=== PATIENT | female | born 1985 | race Caucasian/White ===

== ENCOUNTER 2022-02-08 04:52 | Emergency (ER) | payer OTHER, SELFPAY ==
--- NOTE | ~2022-02-08 | XR_ITS ---
EXAMINATION: XR CHEST CLINICAL INFORMATION: Cough COMPARISON: None TECHNIQUE: Frontal view of the chest was obtained. FINDINGS: Normal symmetric lung volumes. No parenchymal consolidation. Mild bilateral parahilar bronchial thickening. No pleural effusion. No pneumothorax. Cardiomediastinal silhouette and pulmonary vascularity are within normal limits. No acute osseous abnormalities. XR/XR chest 1V IMPRESSION: Mild bilateral parahilar bronchial thickening as can be seen with bronchitis and/or asthma
[2022-02-08 05:03] VITALS: BP 144/92; PULSE 116; RESP 20; TEMP 36.8; O2SAT 96; BMI 18.8
[2022-02-08 05:39] LABS: COVID-19 Test Negative (Negative); IDNOW Serial# 08D9AD1C; Influenza A Negative (Negative); Influenza B2 Negative (Negative)
[2022-02-08 05:41] VITALS: BP 126/83; PULSE 97; RESP 22; TEMP 36.8; O2SAT 96
[2022-02-08 06:11] VITALS: PULSE 101; RESP 18; O2SAT 92
[2022-02-08] MEDS: Albuterol Sulfate (0.083%) 2.5 MG/3 ML VIAL.NEB 10 MG INHALE (06:15)
--- NOTE | 2022-02-08 07:03 | ED.URI ---
HPI - URI/Sore Throat General Chief Complaint: Upper Respiratory Symptoms Stated Complaint: SoB, Cough Time Seen by Provider: 02/08/22 05:47 Source: patient Mode of arrival: ambulatory History of Present Illness HPI Narrative: 36-year-old female with history of asthma, every day smoker of cigarettes who presents with increasing shortness of breath and difficulty breathing without associated fever, chills, nausea, vomiting, or diarrhea. Patient states she has also had a cough productive of yellow phlegm. Patient is not currently manage her asthma with albuterol. Related Data Previous Rx's Medication Instructions Recorded albuterol sulfate 90 mcg/actuation 2 puff INHALATION Q4-6H PRN #8.5 g 02/08/22 aerosol inhaler (Ventolin HFA) prednisone 50 mg tablet 50 mg PO DAILY 4 Days #4 tab 02/08/22 Allergies Allergy/AdvReac Type Severity Reaction Status Date / Time No Known Allergies Allergy Unverified 07/13/20 18:05 Review of Systems Review of Systems: Pertinent positives and negatives as stated in HPI and 10 point review of systems is otherwise negative. PMFSH Past Medical History Source: nursing notes reviewed Social History Social History Alcohol intake: former Patient Tobacco Use Status: Current everyday Tobacco user Smoked in Last 30 Days: Yes Use of substances other than those prescribed or required for medical reasons: Yes Substance Use Type: Marijuana Substance Use Frequency: Monthly Last Used Substance: Days (ago) Any prior treatment program specific to substance use: No Advance Directives: No Advance Directives Information Provided: Yes Patient : No Physical Exam Vital Signs: Vital Signs: Last Vital Signs Temp 98 F 02/08/22 07:26 Pulse 117 H 02/08/22 07:26 Resp 18 02/08/22 07:26 BP 120/69 02/08/22 07:26 Pulse Ox 94 02/08/22 07:26 BMI result Body Mass Index 18.8 VITAL SIGNS: Reviewed. GENERAL: Well developed, well nourished, in no acute distress. HEAD: Normocephalic/atraumatic EYES: PERRLA, EOMI EARS: Ext canals without abnormality, TMs non-bulging and non-erythematous NOSE: Nares patent bilateral OROPHARYNX: no oral lesions noted, posterior pharynx clear and non-erythematous without noted tonsillar enlargement/erythema/exudates NECK: Supple, no adenopathy LUNGS: Decreased breath sounds, expiratory wheeze noted without rhonchi/rales No adventitious sounds or accessory muscle use. SpO2<96> CARDIOVASCULAR: Regular rate and rhythm without noted murmurs, ABDOMEN: Soft, non-tender, non-distended with bowel sounds. SKIN: Inspection of the skin reveals no rashes NEUROLOGIC: Alert and oriented x 4. Strength and sensation to light touch were grossly intact x 4. Course Course Course Narrative: 36-year-old female with history and clinical presentation consistent with asthma exacerbation on review of all investigations there are no acute findings to suggest pneumonia or influenza/COVID. Patient was given 2 hour long albuterol treatments, was never hypoxic, and received initial dose of prednisone and then discharged home in stable condition. MDM - URI/Sore Throat Lab Data Labs: Lab Results 02/08/22 02/08/22 Range/Units 05:19 05:19 COVID-19 (TAWNY) Negative (Negative) COVID-19 Clin Com See Note Influenza Type A (ISAAC) Negative (Negative) Influenza Type B (ISAAC) Negative (Negative) Influenza A & B Note See Note Discharge Plan Discharge Clinical Impression: Asthma exacerbation, Bronchitis Patient Disposition: Home, Self-Care Instructions: Asthma (ED), Acute Bronchitis (ED) Additional Instructions: 1. Start taking odff-sra-woyigcg Flonase and Claritin to help reduce the FX of seasonal allergies. 2. Complete the course of prednisone as prescribed. 3. You have been provided with a prescription for Ventolin and should use it at 2 puffs every 4-6 hours for shortness of breath. 4. Follow-up with your primary care provider on Friday morning. Return to the ER for worsening symptoms. Prescriptions: New prednisone 50 mg tablet 50 mg PO DAILY 4 Days Qty: 4 0RF albuterol sulfate [Ventolin HFA] 90 mcg/actuation HFA aerosol inhaler 2 puff inhalation Q4-6H PRN (Reason: shortness of breath or wheezing) Qty: 8.5 0RF Referrals: Stephanie Sheikh MD [Primary Care Provider] -
[2022-02-08 07:26] VITALS: BP 120/69; PULSE 117; RESP 18; TEMP 36.6; O2SAT 94
[2022-02-08] MEDS: predniSONE 10 MG TABLET 50 MG PO (07:27)
== END 2022-02-08 08:09 | disposition home or self-care (01) ==
PROVIDERS: Student in an Organized Health Care Education/Training Program; Emergency Provider Emergency Medicine; PCP Internal Medicine
DX: J45.901 Unspecified asthma with (acute) exacerbation (principal); R06.02 Shortness of breath; R05.9 Cough, unspecified; Z20.822 Contact with and (suspected) exposure to COVID-19; F17.210 Nicotine dependence, cigarettes, uncomplicated; Z71.6 Tobacco abuse counseling; Z79.899 Other long term (current) drug therapy
CPT/HCPCS: 71045; 87502; 87635; 94640; 94644; 99284

== ENCOUNTER 2022-11-25 14:53 | Observation (INO) | payer OTHER, SELFPAY ==
--- NOTE | ~2022-11-25 | CT_ITS ---
EXAMINATION: CT ANGIOGRAM OF THE CHEST WITH AND WITHOUT CONTRAST (CT PULMONARY ANGIOGRAM FOR PE) CLINICAL INFORMATION: Reason for Exam hypoxia, tachycardia COMPARISON: Chest radiograph 11/25/2022, CT abdomen pelvis 09/24/2018 TECHNIQUE: Prior to contrast administration, noncontrast localization images were obtained. Subsequently, multidetector volumetric imaging was performed from the thoracic inlet to below the diaphragms following the administration of 100 mL Omnipaque 350 intravenous contrast. No contrast reaction reported Sagittal, coronal, and MIP oblique sagittal reformatted images were obtained on the CT workstation, uploaded to PACS, and reviewed. This CT examination was performed using dose optimization techniques as appropriate, variously including the following: *Automated exposure control *Adjustment of mA and/or kV according to patient size (this includes techniques or standardized protocols for targeted exams where dose is matched to indication/reason for exam; i.e. extremities or head) *Use of iterative reconstruction technique Total exam dose-length product 364 mGy-cm FINDINGS: QUALITY OF STUDY/CONTRAST BOLUS: Suboptimal. PULMONARY ARTERIES: No central or large segmental pulmonary emboli. THORACIC AORTA: No aneurysm or dissection. 4 vessel branching pattern of the arch is seen with a separate origin to the left vertebral artery. LUNG: Peripheral groundglass infiltrates are seen in the right upper lobe, right middle lobe, lingula and right lower lobe. There is a 6 mm right lower lobe subpleural nodule adjacent to the major fissure (9:265). There is a subpleural 3 mm right lower lobe nodule laterally (9:289). There is a 5 mm pleural-based left lower lobe nodule (9:345). PLEURA: No pleural effusion or pneumothorax. MEDIASTINUM: Normal heart size. No pericardial effusion. No hilar or mediastinal lymphadenopathy. No evidence of septal bowing or right heart strain. CORONARY ARTERY CALCIFICATION: None visualized on this study. CHEST WALL/AXILLA: No axillary or internal mammary lymphadenopathy. OSSEOUS STRUCTURES: No acute or suspicious osseous abnormality. UPPER ABDOMEN: Some splenic hypodensities are present. No reflux of contrast into the hepatic veins to suggest elevated right heart pressures. CT/CT angio chest PE protocol IMPRESSION: 1. No evidence of pulmonary emboli. 2. Peripheral groundglass infiltrates suggestive of viral pneumonia. 3. Pulmonary nodules as described above. VTE: negative. 2017 Fleischner Society Recommendations for Lung Nodule(s): Follow-Up based on size (average of long- and short-axis diameters). Use most suspicious nodule for followup. Single Solid lung nodule 6-8 mm: In a low-risk patient, recommend a non-contrast Chest CT at 6-12 months, then consider an additional non-contrast Chest CT at 18-24 months. In a high-risk patient, recommend a non-contrast Chest CT at 6-12 months, then another non-contrast Chest CT at 18-24 months. These guidelines do not apply to patients younger than 35 years, immunocompromised patients, and patients with cancer. F/u in patients with significant comorbidities as clinically warranted. For lung cancer screening, adhere to Lung-RADS guidelines. Reference: Radiology. 2017 Josias; 284(1):228-243
--- NOTE | ~2022-11-25 | XR_ITS ---
EXAMINATION: XR CHEST CLINICAL INFORMATION: Cough and fever. COMPARISON: 02/08/2022 chest radiograph. TECHNIQUE: 2 views of the chest were obtained. FINDINGS: No significant abnormality is noted involving the heart, lungs, mediastinum, bony thorax or soft tissues. XR/XR chest 2V IMPRESSION: No acute cardiopulmonary process.
[2022-11-25 15:25] VITALS: BP 135/94; PULSE 100; RESP 18; TEMP 36.8; O2SAT 98; BMI 18.8
--- NOTE | 2022-11-25 15:25 | ED_ITS ---
HPI - URI/Sore Throat General Chief Complaint: Upper Respiratory Symptoms <Mery Limon NP - Last Filed: 11/25/22 15:27> Stated Complaint: diff breathing <Mery Limon NP - Last Filed: 11/25/22 15:27> Time Seen by Provider: 11/25/22 18:23 <Mery Limon NP - Last Filed: 11/25/22 15:27> Source: patient <JOSH Malone Last Filed: 11/26/22 00:25> Mode of arrival: ambulatory <JOSH Malone Last Filed: 11/26/22 00:25> Limitations: no limitations <JOSH Malone Last Filed: 11/26/22 00:25> History of Present Illness HPI Narrative: 37-year-old female presents with cough, congestion, wheezing and shortness of breath. Upon arrival, patient's O2 sat was 88% on room air. Patient does have a history of asthma, is on methadone. She states that she has had these symptoms for over a week. She has had intermittent subjective fevers, chills, and fatigue. <JOSH Malone Last Filed: 11/26/22 00:25> MD elicited complaint: fever, cough, rhinorrhea and nasal congestion <JOSH Malone Last Filed: 11/26/22 00:25> Onset (ago): week(s) <JOSH Malone Last Filed: 11/26/22 00:25> Consistency: constant and progressively worsening <JOSH Malone Last Filed: 11/26/22 00:25> Severity: moderate <JOSH Malone Last Filed: 11/26/22 00:25> Description of mucous: clear <JOSH Malone Last Filed: 11/26/22 00:25> Able to tolerate fluids by mouth: Yes <JOSH Malone Last Filed: 11/26/22 00:25> Exacerbating factors: exertion, speaking and deep breaths <JOSH Malone Last Filed: 11/26/22 00:25> Relieving factors: nothing <JOSH Malone Last Filed: 11/26/22 00:25> Associated symptoms: fever, chills, myalgias, rhinorrhea, nasal congestion, cough and shortness of breath <Hilda Youngblood NP - Last Filed: 11/26/22 00:25> Treatments prior to arrival: none <Hilda Youngblood NP - Last Filed: 11/26/22 00:25> Related Data Home Medications: Home Medications Medication Instructions Recorded Confirmed epinephrine 0.125 mg/actuation 1 puff inhalation Q4H PRN 11/25/22 11/25/22 aerosol inhaler (Primatene Mist) Shortness Of Breath Or Wheezing <Mery Limon NP - Last Filed: 11/25/22 15:27> Allergies/Adverse Reactions: Allergies Allergy/AdvReac Type Severity Reaction Status Date / Time No Known Allergies Allergy Unverified 07/13/20 18:05 <Mery Limon NP - Last Filed: 11/25/22 15:27> Review of Systems Review of Systems: Constitutional: positive Fever, positive Chills, positive fatigue, positive Malaise ENT/Mouth: positive sore throat, positive runny nose Eyes: No Discharge Cardiovascular: No Chest Pain, No SOB Respiratory: Positive Cough, No Sputum, positive Wheezing, No Dyspnea Gastrointestinal: No Nausea, No Vomiting, No Diarrhea Musculoskeletal: positive Myalgia Skin: No rash Neuro: No Headache <JOSH Malone Last Filed: 11/26/22 00:25> Yes all other systems are reviewed and are negative <Hilda Youngblood NP - Last Filed: 11/26/22 00:25> [facility] Past Medical History Attestation statement: The following information was validated with the patient. <Hilda Youngblood NP - Last Filed: 11/26/22 00:25> Source: old records reviewed <JOSH Malone Last Filed: 11/26/22 00:25> Medical History: Medical History (Updated 11/26/22 @ 00:25 by Hilda Youngblood NP) Hepatitis C Mild intermittent asthma Opioid dependence Polysubstance abuse <JOSH Flowers Last Filed: 11/25/22 15:27> Social History Social History: Social History Alcohol intake: former Patient Tobacco Use Status: Current everyday Tobacco user Substance Use Type: Marijuana Advance Directives: No Advance Directives Information Provided: Yes <Mery Liomn NP - Last Filed: 11/25/22 15:27> Physical Exam Vital Signs: Vital Signs: Last Vital Signs Temp 98.2 F 11/25/22 18:26 Pulse 105 H 11/25/22 20:57 Resp 18 11/25/22 20:57 BP 115/73 11/25/22 18:26 Pulse Ox 96 11/25/22 20:29 O2 Del Method 11/25/22 20:29 BMI result Body Mass Index 18.8 <Mery Limon NP - Last Filed: 11/25/22 15:27> Vital Signs: Last Vital Signs Temp 98.2 F 11/25/22 18:26 Pulse 105 H 11/25/22 20:57 Resp 18 11/25/22 20:57 BP 115/73 11/25/22 18:26 Pulse Ox 96 11/25/22 20:29 O2 Del Method 11/25/22 20:29 BMI result Body Mass Index 18.8 <Hilda Youngblood NP - Last Filed: 11/26/22 00:25> Appearance: Alert. Oriented X3. Moderate distress. Eyes: Pupils equal, round and reactive to light. ENT: Pharynx normal. Neck: Normal inspection. Neck supple. CVS: Tachycardic heart rate and rhythm. Pulses normal. Respiratory: Tachypneic. Diminished bases coarse lung sounds throughout. Hypoxic. Abdomen: Soft and nontender. Skin: Skin warm and dry. Normal skin color. Normal skin turgor. Extremities: No lower extremity edema. Neuro: No motor deficit. No sensory deficit. Cranial nerves 2-12 intact. <Hilda Youngblood NP - Last Filed: 11/26/22 00:25> Course Course Course Narrative: This is rapid medical exam. Deferred additional HPI, ROS, PE to primary provider. 37 yo female currently on methadone, hep c here with cough, congestion, chest discomfort with coughing. Will need CXR, covid/flu/rsv testing . VSS <Mery Limon NP - Last Filed: 11/25/22 15:27> This is rapid medical exam. Deferred additional HPI, ROS, PE to primary provider. 37 yo female currently on methadone, hep c here with cough, congestion, chest discomfort with coughing. Will need CXR, covid/flu/rsv testing. VSS 37-year-old female presents with upper respiratory symptoms, is hypoxic on room air at 88%. A chest x-ray completed while she was in the emergency department waiting room, which is negative for acute findings. Labs unremarkable, WBC is 10.0, H&H is 12.7/37.7. Will give albuterol, Solu-Medrol and magnesium. Lung are coarse diminished at bases. Patient continues to be hypoxic on ambulation after albuterol nebulizers. Patient does not have an elevated white count, will order ceftriaxone, azithromycin for suspected pneumonia, and lactic with cultures. I do not believe that this patient is septic at this time. Lactic acid is 5.2, I feel this is respiratory acidosis, this patient is not septic. Patient is admitted for hypoxia and pneumonia. <Hilda Youngblood NP - Last Filed: 11/26/22 00:25> Consultations Consultation #1: Oleg <Hilda Youngblood NP - Last Filed: 11/26/22 00:25> Medications Administered Generic Name Dose Route Start Last Admin Trade Name Freq PRN Reason Stop Dose Admin Enoxaparin Sodium 40 mg 11/25/22 22:00 11/25/22 21:58 Enoxaparin Sodium 40 Mg/0.4 Ml Syringe SUBCUT 40 mg Q24H JACOB Administration Sodium Chloride 3 ml 11/26/22 00:00 11/25/22 23:49 0.9 % Sodium Chloride Flush 3 Ml Syringe IVFLUSH 3 ml QSHIFT JACOB Administration Discontinued Medications Generic Name Dose Route Start Last Admin Trade Name Freq PRN Reason Stop Dose Admin Albuterol Sulfate 10 mg 11/25/22 18:28 11/25/22 18:54 Albuterol Sulfate (0.083%) 2.5 Mg/3 Ml Vial.Neb INHALE 11/25/22 18:29 10 mg ONCE ONE Administration Albuterol Sulfate 10 mg 11/25/22 20:46 11/25/22 20:57 Albuterol Sulfate (0.083%) 2.5 Mg/3 Ml Vial.Neb INHALE 11/25/22 20:47 10 mg ONCE ONE Administration Magnesium Sulfate 2 gm in 50 mls @ 25 mls/hr 11/25/22 18:28 11/25/22 19:07 Magnesium Sulfate/H2o IV 11/25/22 20:27 25 mls/hr ONCE ONE Administration Sodium Chloride 1,000 mls @ 999 mls/hr 11/25/22 21:00 11/25/22 22:00 Ns IVCONT 11/25/22 22:00 999 mls/hr .Q1H1M JACOB Administration Ceftriaxone Sodium 1 gm/ 50 mls @ 100 mls/hr 11/25/22 20:47 11/25/22 21:58 Sodium Chloride IV 11/25/22 21:16 100 mls/hr ONCE ONE Administration Azithromycin 500 mg/ Sodium 250 mls @ 125 mls/hr 11/25/22 20:47 11/25/22 23:49 Chloride IV 11/25/22 22:46 125 mls/hr ONCE ONE Administration Iohexol 100 ml 11/25/22 23:06 11/25/22 23:07 Iohexol 350 Mg/Ml 100 Ml Infus..Btl IV 11/25/22 23:07 100 ml ONCE ONE Administration Methylprednisolone Sodium Succinate 125 mg 11/25/22 18:28 11/25/22 19:07 Methylprednisolone Sod Succ 125 Mg/2 Ml Vial IVPUSH 11/25/22 18:29 125 mg ONCE ONE Administration <Mery Limon SURFACE PLATE INSPECTOR - Last Filed: 11/25/22 15:27> Medications Administered Generic Name Dose Route Start Last Admin Trade Name Freq PRN Reason Stop Dose Admin Enoxaparin Sodium 40 mg 11/25/22 22:00 11/25/22 21:58 Enoxaparin Sodium 40 Mg/0.4 Ml Syringe SUBCUT 40 mg Q24H JACOB Administration Sodium Chloride 3 ml 11/26/22 00:00 11/25/22 23:49 0.9 % Sodium Chloride Flush 3 Ml Syringe IVFLUSH 3 ml QSHIFT JACOB Administration Discontinued Medications Generic Name Dose Route Start Last Admin Trade Name Freq PRN Reason Stop Dose Admin Albuterol Sulfate 10 mg 11/25/22 18:28 11/25/22 18:54 Albuterol Sulfate (0.083%) 2.5 Mg/3 Ml Vial.Neb INHALE 11/25/22 18:29 10 mg ONCE ONE Administration Albuterol Sulfate 10 mg 11/25/22 20:46 11/25/22 20:57 Albuterol Sulfate (0.083%) 2.5 Mg/3 Ml Vial.Neb INHALE 11/25/22 20:47 10 mg ONCE ONE Administration Magnesium Sulfate 2 gm in 50 mls @ 25 mls/hr 11/25/22 18:28 11/25/22 19:07 Magnesium Sulfate/H2o IV 11/25/22 20:27 25 mls/hr ONCE ONE Administration Sodium Chloride 1,000 mls @ 999 mls/hr 11/25/22 21:00 11/25/22 22:00 Ns IVCONT 11/25/22 22:00 999 mls/hr .Q1H1M JACOB Administration Ceftriaxone Sodium 1 gm/ 50 mls @ 100 mls/hr 11/25/22 20:47 11/25/22 21:58 Sodium Chloride IV 11/25/22 21:16 100 mls/hr ONCE ONE Administration Azithromycin 500 mg/ Sodium 250 mls @ 125 mls/hr 11/25/22 20:47 11/25/22 23:49 Chloride IV 11/25/22 22:46 125 mls/hr ONCE ONE Administration Iohexol 100 ml 11/25/22 23:06 11/25/22 23:07 Iohexol 350 Mg/Ml 100 Ml Infus..Btl IV 11/25/22 23:07 100 ml ONCE ONE Administration Methylprednisolone Sodium Succinate 125 mg 11/25/22 18:28 11/25/22 19:07 Methylprednisolone Sod Succ 125 Mg/2 Ml Vial IVPUSH 11/25/22 18:29 125 mg ONCE ONE Administration <Hilda Youngblood NP - Last Filed: 11/26/22 00:25> Medical Decision Making Differential Diagnosis Differential Diagnoses: The differential diagnosis associated with the presentation includes <Hilda Youngblood NP - Last Filed: 11/26/22 00:25> COVID, influenza, RSV, pneumonia <Hilda Youngblood NP - Last Filed: 11/26/22 00:25> Admission/Observation Consideration of admission/observation: Escalation of care including admission/observation considered <Hilda Youngblood NP - Last Filed: 11/26/22 00:25> Patient requires admission for hypoxia, suspicion of pneumonia <Hilda Youngblood NP - Last Filed: 11/26/22 00:25> Consult Healthcare Provider Management of the patient was discussed with: Hospitalist <Hilda Youngblood NP - Last Filed: 11/26/22 00:25> Lab Data MDM Lab Attestation statement: I reviewed the patient's lab results. <Hilda Youngblood NP - Last Filed: 11/26/22 00:25> Result Diagrams: 11/25/22 18:59 11/25/22 18:59 <Mery Limon, SURFACE PLATE INSPECTOR - Last Filed: 11/25/22 15:27> Labs: Lab Results 11/25/22 11/25/22 11/25/22 Range/Units 18:25 18:59 18:59 WBC 10.0 (4.8-10.8) X10*3/uL RBC 4.02 L (4.20-5.50) X10*6/uL Hgb 12.7 (12.0-16.0) g/dl Hct 37.7 (37.0-47.0) % MCV 93.8 (80.0-98.0) fL MCH 31.6 (27.0-33.0) pg MCHC 33.7 (31.0-35.0) g/dl RDW 11.9 (11.0-16.0) % Plt Count 265 (160-400) X10*3/uL MPV 9.0 L (9.4-12.3) fL Immature Gran % (Auto) 0.2 (0.0-0.4) % Neut % (Auto) 55.9 (45-73) % Lymph % (Auto) 26.5 (20-40) % [place] % (Auto) 11.0 (2-11) % Eos % (Auto) 5.7 H (0-4) % Baso % (Auto) 0.7 (0-2) % Lymph # (Auto) 2.7 (1.2-4.9) X10*3/uL [place] # (Auto) 1.1 (0.1-1.2) X10*3/uL Eos # (Auto) 0.6 H (0.0-0.4) X10*3/uL Baso # (Auto) 0.1 (0.0-0.2) X10*3/uL Abs Immat Gran (auto) 0.02 (0.00-0.03) X10*3/uL Absolute Neuts (auto) 5.6 (2.0-8.3) x10*3/uL Absolute Nucleated RBC 0.000 (0.0-0.012) X10*3/uL Nucleated RBC % (auto) 0.0 (0.0-0.2) /100WBC Sodium 138 (135-145) mmol/L Potassium 4.7 (3.3-5.1) mmol/L Chloride 100 (96-108) mmol/L Carbon Dioxide 32 H (22-29) mmol/L Anion Gap 11 L (12-20) BUN 13 (9-16) mg/dL Creatinine 0.70 (0.5-1.4) mg/dL Estim Creat Clear Calc 85.8 Estimated GFR > 60 Random Glucose 77 (60-115) mg/dL Calcium 9.2 (8.4-10.2) mg/dL Magnesium 2.0 (1.6-2.6) mg/dL Influenza Type A (PCR) NEGATIVE (Negative) Influenza Type B (PCR) NEGATIVE (Negative) RSV RNA Qual (PCR) NEGATIVE (Negative) SARS-CoV-2 RNA (RT-PCR) NEGATIVE (Negative) <Mery Limon, SURFACE PLATE INSPECTOR - Last Filed: 11/25/22 15:27> Lab Results 11/25/22 11/25/22 11/25/22 Range/Units 18:25 18:59 18:59 WBC 10.0 (4.8-10.8) X10*3/uL RBC 4.02 L (4.20-5.50) X10*6/uL Hgb 12.7 (12.0-16.0) g/dl Hct 37.7 (37.0-47.0) % MCV 93.8 (80.0-98.0) fL MCH 31.6 (27.0-33.0) pg MCHC 33.7 (31.0-35.0) g/dl RDW 11.9 (11.0-16.0) % Plt Count 265 (160-400) X10*3/uL MPV 9.0 L (9.4-12.3) fL Immature Gran % (Auto) 0.2 (0.0-0.4) % Neut % (Auto) 55.9 (45-73) % Lymph % (Auto) 26.5 (20-40) % [place] % (Auto) 11.0 (2-11) % Eos % (Auto) 5.7 H (0-4) % Baso % (Auto) 0.7 (0-2) % Lymph # (Auto) 2.7 (1.2-4.9) X10*3/uL [place] # (Auto) 1.1 (0.1-1.2) X10*3/uL Eos # (Auto) 0.6 H (0.0-0.4) X10*3/uL Baso # (Auto) 0.1 (0.0-0.2) X10*3/uL Abs Immat Gran (auto) 0.02 (0.00-0.03) X10*3/uL Absolute Neuts (auto) 5.6 (2.0-8.3) x10*3/uL Absolute Nucleated RBC 0.000 (0.0-0.012) X10*3/uL Nucleated RBC % (auto) 0.0 (0.0-0.2) /100WBC Sodium 138 (135-145) mmol/L Potassium 4.7 (3.3-5.1) mmol/L Chloride 100 (96-108) mmol/L Carbon Dioxide 32 H (22-29) mmol/L Anion Gap 11 L (12-20) BUN 13 (9-16) mg/dL Creatinine 0.70 (0.5-1.4) mg/dL Estim Creat Clear Calc 85.8 Estimated GFR > 60 Random Glucose 77 (60-115) mg/dL Calcium 9.2 (8.4-10.2) mg/dL Magnesium 2.0 (1.6-2.6) mg/dL Influenza Type A (PCR) NEGATIVE (Negative) Influenza Type B (PCR) NEGATIVE (Negative) RSV RNA Qual (PCR) NEGATIVE (Negative) SARS-CoV-2 RNA (RT-PCR) NEGATIVE (Negative) <Hilda Youngblood NP - Last Filed: 11/26/22 00:25> Independent Interpretation I performed an independent interpretation of an: Plain X-Ray and CT Scan <Hilda Youngblood NP - Last Filed: 11/26/22 00:25> Radiology Impression Discussion of test interpretation with radiology: I have reviewed the radiologist's reading. <Hilda Youngblood NP - Last Filed: 11/26/22 00:25> Radiologist Impression: FINDINGS: QUALITY OF STUDY/CONTRAST BOLUS: Suboptimal. PULMONARY ARTERIES: No central or large segmental pulmonary emboli.? THORACIC AORTA: No aneurysm or dissection. 4 vessel branching pattern of the arch is seen with a separate origin to the left vertebral artery. LUNG: Peripheral groundglass infiltrates are seen in the right upper lobe, right middle lobe, lingula and right lower lobe. There is a 6 mm right lower lobe subpleural nodule adjacent to the major fissure (9:265). There is a subpleural 3 mm right lower lobe nodule laterally (9:289). There is a 5 mm pleural-based left lower lobe nodule (9:345). PLEURA: No pleural effusion or pneumothorax. MEDIASTINUM: Normal heart size.? No pericardial effusion.? No hilar or mediastinal lymphadenopathy.? No evidence of septal bowing or right heart strain. CORONARY ARTERY CALCIFICATION: None visualized on this study. CHEST WALL/AXILLA: No axillary or internal mammary lymphadenopathy. OSSEOUS STRUCTURES: No acute or suspicious osseous abnormality.? UPPER ABDOMEN: Some splenic hypodensities are present.? No reflux of contrast into the hepatic veins to suggest elevated right heart pressures. CT/CT angio chest PE protocol IMPRESSION: 1.? No evidence of pulmonary emboli. 2.? Peripheral groundglass infiltrates suggestive of viral pneumonia. 3.? Pulmonary nodules as described above. VTE: negative. ? 2017 Fleischner Society Recommendations for Lung Nodule(s): Follow-Up based on size (average of long- and short-axis diameters). Use most suspicious nodule for followup. ? Single Solid lung nodule 6-8 mm:? In a low-risk patient, recommend a non-contrast Chest CT at 6-12 months, then consider an additional non-contrast Chest CT at 18-24 months.? In a high-risk patient, recommend a non-contrast Chest CT at 6-12 months, then another non-contrast Chest CT at 18-24 months.? ? These guidelines do not apply to patients younger than 35 years, immunocompromised patients, and patients with cancer. F/u in patients with significant comorbidities as clinically warranted. For lung cancer screening, adhere to Lung-RADS guidelines.? Reference:? Radiology. 2017 Apr; 284(1):228-243 EXAMINATION: XR CHEST CLINICAL INFORMATION: Cough and fever. COMPARISON: 02/08/2022 chest radiograph. TECHNIQUE: 2 views of the chest were obtained. FINDINGS: No significant abnormality is noted involving the heart, lungs, mediastinum, bony thorax or soft tissues. XR/XR chest 2V IMPRESSION: No acute cardiopulmonary process. <Hilda Youngblood NP - Last Filed: 11/26/22 00:25> External Record Review External record reviewed: Outpatient record and Prior outpatient labs <Hilda Youngblood NP - Last Filed: 11/26/22 00:25> Prescription Management I considered prescription management with: Antibiotic <Hilda Youngblood NP - Last Filed: 11/26/22 00:25> Social Determinants Patient?s care significantly limited by Social Determinants of Health including: Other Social Determinant of Health <Hilda Youngblood NP - Last Filed: 11/26/22 00:25> Discharge Plan Discharge Clinical Impression: Asthma exacerbation, Acute hypoxemic respiratory failure, Pneumonia <Mery Limon NP - Last Filed: 11/25/22 15:27> Patient Disposition: Admitted As Inpatient <Mery Limon NP - Last Filed: 11/25/22 15:27>
[2022-11-25 18:26] VITALS: BP 115/73; PULSE 95; RESP 20; TEMP 36.8; O2SAT 89
[2022-11-25] MEDS: Albuterol Sulfate (0.083%) 2.5 MG/3 ML VIAL.NEB 10 MG INHALE ×2 (18:54→20:57)
[2022-11-25 18:58] VITALS: PULSE 88; RESP 18; O2SAT 91
[2022-11-25 19:04] LABS: MANUAL DIFF FLAG NO
[2022-11-25 19:05] LABS: Basophils Absolute Auto 0.1 X10*3/uL (0.0-0.2); Basophils Percent Auto 0.7 % (0-2); Eosinophils Absolute Auto 0.6 X10*3/uL (0.0-0.4); Eosinophils Percent Auto 5.7 % (0-4); Hematocrit 37.7 % (37.0-47.0); Hemoglobin 12.7 g/dl (12.0-16.0); Imm Gran Abs Auto 0.02 X10*3/uL (0.00-0.03); Imm Gran Pct Auto 0.2 % (0.0-0.4); Lymphocytes Absolute Auto 2.7 X10*3/uL (1.2-4.9); Lymphocytes Percent Auto 26.5 % (20-40); Mean Corpuscular HGB Conc 33.7 g/dl (31.0-35.0); Mean Corpuscular Hemoglobin 31.6 pg (27.0-33.0); Mean Corpuscular Volume 93.8 fL (80.0-98.0); Monocytes Absolute Auto 1.1 X10*3/uL (0.1-1.2); Neutrophils Absolute Auto 5.6 x10*3/uL (2.0-8.3); Neutrophils Percent Auto 55.9 % (45-73); Platelet Count 265 X10*3/uL (160-400); Red Blood Count 4.02 X10*6/uL (4.20-5.50); Red Cell Distribution Width 11.9 % (11.0-16.0)
[2022-11-25] MEDS: methylPREDNISolone Sod Succ 125 MG/2 ML VIAL IVPUSH (19:07)
[2022-11-25] MEDS: Magnesium Sulfate/H2O 2 GM/50 ML PIGGYBACK IV (19:07)
[2022-11-25 19:12] LABS: Influenza A PCR NEGATIVE (Negative); Influenza B PCR NEGATIVE (Negative); Resp Syncy Virus RNA Qual PCR NEGATIVE (Negative); SARS COV2 PCR INHOUSE NEGATIVE (Negative)
[2022-11-25 19:26] LABS: Anion Gap 11 (12-20); Blood Urea Nitrogen 13 mg/dL (9-16); Calcium 9.2 mg/dL (8.4-10.2); Carbon Dioxide 32 mmol/L (22-29); Chloride 100 mmol/L (96-108); Creatinine Clr Calc Pharmacy 85.8; Estimated Glomerular Filt Rate > 60; Glucose Random 77 mg/dL (60-115); Potassium 4.7 mmol/L (3.3-5.1); Sodium 138 mmol/L (135-145)
[2022-11-25 20:28] VITALS: O2SAT 88
[2022-11-25 20:29] VITALS: O2SAT 96
[2022-11-25 20:57] VITALS: PULSE 105; RESP 18; O2SAT 95
--- NOTE | 2022-11-25 21:40 | PM.IMHP ---
History of Present Illness Date of Service: 11/25/22 Attending physician on admission: Cornelius Beltre Chief Complaint: sob, cough 37-year-old female with history of mild intermittent asthma, recently diagnosed hepatitis-C, history of polysubstance abuse, current every day smoker (though only smoking 1 cigarette daily due to illness), and opioid dependence on methadone presented to the ED earlier today for evaluation of shortness of breath, productive cough with yellow sputum production, nasal congestion ongoing for 1.5 weeks. She is also reporting dark urine and urinary urgency. She denies any sick contacts and states she did take a COVID-19 test at home which was negative at the beginning of her symptoms. She has been using her albuterol inhaler with limited improvement of symptoms. On arrival, patient was hypoxic to 89% on room air placed on 2 L supplemental O2. Vital signs otherwise stable. Chest x-ray negative for any acute cardiopulmonary abnormality. No leukocytosis. Renal function normal. Electrolytes normal except for mild hypercapnia of 32. VBG pending. Treated with 2 rounds of 10 mg albuterol nebulizer, IV magnesium, and 125 mg methylprednisolone with limited improvement in symptoms. Chest CTA pending. Negative for COVID-19, influenza, RSV. Patient to be observed for acute asthma exacerbation with acute hypoxemic respiratory failure. Review of Systems Review of Systems: General: No fevers, malaise, unintentional weight loss HEENT: No blurred vision, diplopia. No sore throat, nasal congestion, rhinorrhea, sinus pain, ear pain Cardiovascular: +pleuritic chest pain. No chest pressure, palpitations, or leg edema Respiratory: +shortness of breath, wheezing, cough GI: No abdominal pain, nausea, vomiting, diarrhea, constipation, melena, hematochezia : No dysuria, hematuria, increased urinary frequency, decreased urinary output MSK: No myalgia, back pain Neuro: No headaches, weakness, paresthesias Skin: No rashes or lesions PMFSH Medical History (Updated 11/25/22 @ 21:46 by NILE Carranza) Hepatitis C Mild intermittent asthma Opioid dependence Polysubstance abuse Social History Alcohol intake: former Patient Tobacco Use Status: Current everyday Tobacco user Substance Use Type: Marijuana Advance Directives: No Advance Directives Information Provided: Yes Meds Allergies Allergy/AdvReac Type Severity Reaction Status Date / Time No Known Allergies Allergy Unverified 07/13/20 18:05 Active Medications: Current Medications Sodium Chloride (Ns) 1,000 mls @ 999 mls/hr IVCONT .Q1H1M JACOB Stop: 11/25/22 22:00 Azithromycin 500 mg/ Sodium (Chloride) 250 mls @ 125 mls/hr IV ONCE ONE Stop: 11/25/22 22:46 Physical Exam Vital Signs and Narrative: Vital Signs: Last Vital Signs Temp 98.2 F 11/25/22 18:26 Pulse 105 H 11/25/22 20:57 Resp 18 11/25/22 20:57 BP 115/73 11/25/22 18:26 Pulse Ox 96 11/25/22 20:29 O2 Del Method 11/25/22 20:29 BMI result Body Mass Index 18.8 Constitutional - Awake and Alert, No apparent distress Eyes - PERRLA, EOMI Cardiovascular - S1S2, RRR, No edema Respiratory - Normal lung expansion, Normal respiratory effort, No respiratory distress on 2 L supplemental O2, coarse breath sounds bilaterally with expiratory wheezing Gastrointestinal - NT / ND; +BS; No rebound or guarding Extremities - no calf tenderness bilaterally, no swelling Skin - Warm/Dry Neurological - Alert & oriented x3 Psychological - Appropriate affect Results Labs 11/25/22 18:59 11/25/22 18:59 Labs: Laboratory Results - last 24 hr 11/25/22 11/25/22 11/25/22 18:25 18:59 18:59 MCV 93.8 MCH 31.6 MCHC 33.7 RDW 11.9 Plt Count 265 MPV 9.0 L Immature Gran % (Auto) 0.2 Neut % (Auto) 55.9 Lymph % (Auto) 26.5 [place] % (Auto) 11.0 Eos % (Auto) 5.7 H Baso % (Auto) 0.7 Lymph # (Auto) 2.7 [place] # (Auto) 1.1 Eos # (Auto) 0.6 H Baso # (Auto) 0.1 Abs Immat Gran (auto) 0.02 Absolute Neuts (auto) 5.6 Absolute Nucleated RBC 0.000 Nucleated RBC % (auto) 0.0 Anion Gap 11 L Estim Creat Clear Calc 85.8 Estimated GFR > 60 Random Glucose 77 Calcium 9.2 Magnesium 2.0 Influenza Type A (PCR) NEGATIVE Influenza Type B (PCR) NEGATIVE RSV RNA Qual (PCR) NEGATIVE SARS-CoV-2 RNA (RT-PCR) NEGATIVE Imaging Radiologist's Impressions: Impressions Chest X-Ray 11/25/22 15:50 IMPRESSION: No acute cardiopulmonary process. Assessment and Plan (1) Acute hypoxemic respiratory failure: Status: Acute (2) Asthma exacerbation: Status: Acute Plan 37-year-old female with history of mild intermittent asthma, recently diagnosed hepatitis-C, history of polysubstance abuse, current every day smoker (though only smoking 1 cigarette daily due to illness), and opioid dependence on methadone to be observed for acute asthma exacerbation with hypoxia. # acute hypoxemic respiratory failure -likely secondary to asthma exacerbation -CTA chest pending to rule out PE and other acute pulmonary abnormality -continue supplemental O2 to maintain oximetry greater than 92% -treat asthma exacerbation as below -VBG pending # acute asthma exacerbation/acute bronchitis -negative for COVID-19, influenza, RSV. Full viral respiratory panel pending. CXR negative for pneumonia. Chest CTA pending -DuoNebs q.4h -albuterol q.2h p.r.n. -methylprednisolone 40 mg b.i.d. -continue supplemental O2 as above -Hold further abx treatments as this is likely post-viral #Urinary urgency -UA/UC pending # recently diagnosed hepatitis-C -Has upcoming appt for treatment at [facility] with Dr. Raymond on 12/02 #Opioid dependence -Continue methadone -Utox pending #Cigarette smoker -Nicorette gum for NRT -cessation counseling offered DVT prophylaxis-Lovenox Full code Med rec pending Time Spent With Patient Time: Total time managing care of this patient today ____ minutes. Quality Stroke Does the patient have a stroke diagnosis?: No VTE Prior VTE?: No VTE Risk Level:: Medical - moderate - high VTE Device Contraindication: Treatment Not Indicated VTE Drug Contraindication: N/A - Med Ordered
[2022-11-25] MEDS: cefTRIAXone sodium 1 GM in 0.9 % Sodium Chloride 50 ML IV (21:58)
[2022-11-25] MEDS: Enoxaparin Sodium 40 MG/0.4 ML SYRINGE SUBCUT (21:58)
[2022-11-25] MEDS: 0.9 % Sodium Chloride 1,000 ML 999 ML IVCONT (22:00)
--- NOTE | 2022-11-25 22:39 | PHA.MEDREC ---
Pharmacy Consult ? Medication Reconciliation Pharmacy has completed the medication reconciliation. spoke with pt, she showed me her primatene mist inhaler
[2022-11-25 22:54] LABS: Venous Blood Gas Refer to POC result
[2022-11-25 22:54] LABS: VBG Base Excess 4.9 mmol/L; VBG HCO3 31 mmol/L (22-26); VBG pCO2 54 mmHg; VBG pH 7.36 (7.32-7.43); VBG pO2 39 mmHg
[2022-11-25] MEDS: iohexoL 350 MG/ML 100 ML INFUS..BTL IV (23:07)
[2022-11-25 23:19] LABS: Lactic Acid 5.2 mmol/L (0.5-2.0)
[2022-11-25] MEDS: 0.9 % Sodium Chloride Flush 3 ML SYRINGE IVFLUSH (23:49)
[2022-11-25] MEDS: Azithromycin 500 MG in 0.9 % Sodium Chloride 250 ML 125 MG IV (23:49)
[2022-11-26 00:14] LABS: Appearance Urine Clear; Color Urine Yellow; Glucose Urine UA >=1000 mg/dL (Negative); Leukocyte Esterase Urine Negative (Negative); Nitrite Urine Negative (Negative); PH 5.5 (5.0-9.0); Specific Gravity - Urine >= 1.030 (1.005-1.025); UMIC TRIGGER UACC YES; Urine Blood Negative (Negative); Urine Ketones Negative (Negative); Urine Protein Negative (Neg-Trace)
[2022-11-26 00:19] LABS: Bacteria Urine None Seen (None Seen); Hyaline Casts Urine 0-2 /LPF (0-2); RBC Urine 0-2 /HPF (0-2); Squamous Epithelial Cell Urine 0-2 /HPF (0-2); WBC Urine 0-5 /HPF (0-5)
[2022-11-26 00:23] LABS: Amphetamine Screen Urine Not Detected (Not Detect); Barbiturates, Urine Not Detected (Not Detect); Benzodiazepines Screen Urine Not Detected (Not Detect); Cannabinoid Screen Urine Not Detected (Not Detect); Cocaine Screen Urine Not Detected (Not Detect); Fentanyl, urine POSITIVE (Not Detect); Opiate Screen Urine POSITIVE (Not Detect); Phencyclidine Screen Urine Not Detected (Not Detect)
[2022-11-26 00:27] VITALS: BP 92/44; PULSE 114; RESP 16; TEMP 37.1; O2SAT 97
[2022-11-26 00:50] LABS: Reflex Lactate? Lactic Acid Added
[2022-11-26 01:34] LABS: ~Lactic Acid-LAB USE ONLY 7.5 mmol/L (0.5-2.0)
[2022-11-26 03:13] LABS: Reflex Lactate? 2 Y
[2022-11-26] MEDS: 0.9 % Sodium Chloride 1,000 ML 999 ML IV (03:19)
[2022-11-26 03:40] VITALS: BP 103/38; PULSE 110; RESP 16; TEMP 37; O2SAT 96
[2022-11-26 03:46] LABS: ~Lactic Acid-LAB USE ONLY 6.6 mmol/L (0.5-2.0)
--- NOTE | 2022-11-26 03:54 | PC.NURSE ---
Fernando text sent to Dr. Beltre regarding critical lab result called in for lactic acid 6.6
[2022-11-26] MEDS: methylPREDNISolone Sod Succ 40 MG/ML VIAL IVPUSH (07:06)
[2022-11-26 07:07] LABS: MANUAL DIFF FLAG NO
[2022-11-26 07:14] LABS: Hematocrit 32.2 % (37.0-47.0); Hemoglobin 10.7 g/dl (12.0-16.0); Imm Gran Abs Auto 0.03 X10*3/uL (0.00-0.03); Imm Gran Pct Auto 0.6 % (0.0-0.4); Lymphocytes Absolute Auto 0.6 X10*3/uL (1.2-4.9); Lymphocytes Percent Auto 11.7 % (20-40); Mean Corpuscular HGB Conc 33.2 g/dl (31.0-35.0); Mean Corpuscular Hemoglobin 31.4 pg (27.0-33.0); Mean Corpuscular Volume 94.4 fL (80.0-98.0); Mean Platelet Volume 9.4 fL (9.4-12.3); Monocytes Absolute Auto 0.2 X10*3/uL (0.1-1.2); Monocytes Percent Auto 2.8 % (2-11); Neutrophils Absolute Auto 4.6 x10*3/uL (2.0-8.3); Neutrophils Percent Auto 84.9 % (45-73); Platelet Count 228 X10*3/uL (160-400); Red Blood Count 3.41 X10*6/uL (4.20-5.50); Red Cell Distribution Width 12.1 % (11.0-16.0); White Blood Count 5.5 X10*3/uL (4.8-10.8)
[2022-11-26 07:19] VITALS: BP 105/53; PULSE 97; RESP 13; TEMP 36.6; O2SAT 100
[2022-11-26 07:32] LABS: Blood Urea Nitrogen 10 mg/dL (9-16); Calcium 8.4 mg/dL (8.4-10.2); Creatinine Clr Calc Pharmacy 93.8; Estimated Glomerular Filt Rate > 60; Glucose Random 166 mg/dL (60-115)
[2022-11-26] MEDS: 0.9 % Sodium Chloride Flush 3 ML SYRINGE IVFLUSH (07:44)
[2022-11-26 07:47] LABS: Anion Gap 12 (12-20); Carbon Dioxide 23 mmol/L (22-29); Chloride 107 mmol/L (96-108); Potassium 4.2 mmol/L (3.3-5.1); Sodium 138 mmol/L (135-145)
[2022-11-26] MEDS: Albuterol/Iprat 2.5/0.5MG 3 ML AMPUL.NEB INHALE (08:22)
[2022-11-26 08:23] VITALS: PULSE 98; RESP 16; O2SAT 99
--- NOTE | 2022-11-26 09:46 | HE.PHANOTE ---
RE: METHADONE DOSING Verification form received. Current dose 85 mg. Last given 11/25/22 @1148 at [facility] (Kaylen Nuñez RN)
--- NOTE | 2022-11-26 10:52 | MHC.CM.PN ---
pt lives in [facility] with hr the plan is for pt to return to same when dcd she is covid vax
[2022-11-26] MEDS: methADONE HCl 20 MG/2 ML ORAL.CONC 85 MG PO (11:28)
[2022-11-26 12:00] LABS: Adenovirus PCR Not Detected (Not Detect.); Bordetella parapertussis PCR Not Detected (Not Detect.); Bordetella pertussis PCR Not Detected (Not Detect.); Chlamydia pneumoniae PCR Not Detected (Not Detect.); Coronavirus 229E PCR Not Detected (Not Detect.); Coronavirus HKU1 PCR Not Detected (Not Detect.); Coronavirus NL63 PCR Not Detected (Not Detect.); Coronavirus OC43 PCR Not Detected (Not Detect.); Influenza A PCR Not Detected (Not Detect.); SARS-CoV-2 PCR Not Detected (Not Detect.)
[2022-11-26 12:01] LABS: Human metapneumovirus PCR Not Detected (Not Detect.); Influenza B PCR Not Detected (Not Detect.); Mycoplasma pneumoniae PCR Not Detected (Not Detect.); Parainfluenza 1 PCR Not Detected (Not Detect.); Parainfluenza 2 PCR Not Detected (Not Detect.); Parainfluenza 3 PCR Not Detected (Not Detect.); Parainfluenza 4 PCR Not Detected (Not Detect.); RSV PCR Not Detected (Not Detect.); Rhino/Enterovirus PCR Not Detected (Not Detect.)
--- NOTE | 2022-11-26 12:16 | PM.DS ---
DS: Providers Provider Date of Service: 11/26/22 Date of admission: 11/25/22 21:37 Date of discharge: 11/26/22 Primary care physician: Stephanie Sheikh MD Admitting clinician: Naz Dejesus Attending physician on admission: Cornelius Beltre Attending physician on discharge: Nehemias Richardson Discharging clinician: Naz Dejesus DS: Diagnosis Discharge Diagnosis (1) Acute hypoxemic respiratory failure: Status: Acute (2) Asthma exacerbation: Status: Acute DS: Summary Status at Discharge Cognitive/behavioral status at discharge: HPI on admission: 37-year-old female with history of mild intermittent asthma, recently diagnosed hepatitis-C, history of polysubstance abuse, current every day smoker (though only smoking 1 cigarette daily due to illness), and opioid dependence on methadone presented to the ED earlier today for evaluation of shortness of breath, productive cough with yellow sputum production, nasal congestion ongoing for 1.5 weeks. She is also reporting dark urine and urinary urgency. She denies any sick contacts and states she did take a COVID-19 test at home which was negative at the beginning of her symptoms.? She has been using her albuterol inhaler with limited improvement of symptoms.? On arrival, patient was hypoxic to 89% on room air placed on 2 L supplemental O2.? Vital signs otherwise stable.? Chest x-ray negative for any acute cardiopulmonary abnormality.? No leukocytosis.? Renal function normal.? Electrolytes normal except for mild hypercapnia of 32. VBG pending.? Treated with 2 rounds of 10 mg albuterol nebulizer, IV magnesium, and 125 mg methylprednisolone with limited improvement in symptoms.? Chest CTA pending.? Negative for COVID-19, influenza, RSV.? Patient to be observed for acute asthma exacerbation with acute hypoxemic respiratory failure. Hospital course: Pt observed overnight for acute asthma exacerbation thought to be secondary to viral URI. Five full viral respiratory panel is negative including negative for influenza, COVID-19, and RSV. Chest x-ray was negative but subsequent chest CTA did show bilateral infiltrates consistent with viral pneumonia. CTA was negative for PE. Initially, patient did require supplemental O2 for management of acute hypoxemic respiratory failure but was successfully weaned off following administration of IV Solu-Medrol, DuoNebs, and albuterol administration. She is breathing comfortably on room air at 96% on discharge. Vitals otherwise stable throguhout admission. There was no leukocytosis. Labs unremarkable. She will be discharged with 40 mg prednisone daily x3 days, albuterol inhaler with spacer, and guaifenesin to use as needed for cough. Chest CT did incidentally also reveal multiple small pulmonary nodules including 6 mm right lower lobe subpleural nodule, subpleural 3 mm right lower lobe nodule laterally, and a 5 mm pleural-based left lower lobe nodule. Given her age, would recommend follow-up CT in 12 months. Smoking cessation strongly encouraged. Patient declines NRT. Of note, urine tox screen was positive for opiates and fentanyl. Patient reports last inhaled opiate use was 1.5 weeks ago and adamantly denies any drug use more recently than this. She will continue following with her methadone clinic at [facility]. Follow-up with PCP soon. Functional status at discharge: independent ambulation Overall status at discharge: patient is progressing back to baseline Time Spent with Patient Time attestation: Total time managing care of this patient today ____ minutes. Discharge coordination time: Greater than 30 minutes Quality: Safe Use of Opioids Does Pt have an Active Cancer Diagnosis on the Problem List?: No Quality: Stroke Does the patient have a stroke diagnosis?: No Physical Exam Vital Signs: Vital Signs: Last Vital Signs Temp 97.9 F 11/26/22 07:19 Pulse 98 11/26/22 08:23 Resp 16 11/26/22 08:23 BP 105/53 L 11/26/22 07:19 Pulse Ox 100 11/26/22 07:19 O2 Del Method 11/26/22 07:19 O2 Flow Rate 2 11/26/22 07:19 BMI result Body Mass Index 18.8 Constitutional - Awake and Alert, No apparent distress Eyes - PERRLA, EOMI Cardiovascular - S1S2, RRR, No edema Respiratory - Normal lung expansion, Normal respiratory effort, No respiratory distress, CTA bilaterally Gastrointestinal - NT / ND; +BS; No rebound or guarding Extremities - no calf tenderness bilaterally, no swelling Skin - Warm/Dry Neurological - Alert & oriented x3 Psychological - Appropriate affect DS: Data Data Completed and Pending Labs on day of discharge: Laboratory Results - last 24 hr 11/25/22 11/25/22 11/25/22 18:25 18:59 18:59 WBC 10.0 RBC 4.02 L Hgb 12.7 Hct 37.7 MCV 93.8 MCH 31.6 MCHC 33.7 RDW 11.9 Plt Count 265 MPV 9.0 L Immature Gran % (Auto) 0.2 Neut % (Auto) 55.9 Lymph % (Auto) 26.5 Douglas % (Auto) 11.0 Eos % (Auto) 5.7 H Baso % (Auto) 0.7 Lymph # (Auto) 2.7 Douglas # (Auto) 1.1 Eos # (Auto) 0.6 H Baso # (Auto) 0.1 Abs Immat Gran (auto) 0.02 Absolute Neuts (auto) 5.6 Absolute Nucleated RBC 0.000 Nucleated RBC % (auto) 0.0 VBG pH VBG pCO2 VBG pO2 VBG HCO3 VBG O2 Saturation VBG Base Excess Sodium 138 Potassium 4.7 Chloride 100 Carbon Dioxide 32 H Anion Gap 11 L BUN 13 Creatinine 0.70 Estim Creat Clear Calc 85.8 Estimated GFR > 60 Random Glucose 77 Lactic Acid Lactic Acid F/U @ 2Hr Lactic Acid F/U @ 4Hr Calcium 9.2 Magnesium 2.0 Urine Color Urine Appearance Urine pH Ur Specific [place] Urine Protein Urine Glucose (UA) Urine Ketones Urine Blood Urine Nitrite Ur Leukocyte Esterase Urine RBC Urine WBC Ur Squamous Epith Cells Urine Bacteria Hyaline Casts Urine Opiates Screen Urine Fentanyl Screen Ur Barbiturates Screen Ur Phencyclidine Scrn Ur Amphetamines Screen U Benzodiazepines Scrn Urine Cocaine Screen U Marijuana (THC) Screen Respiratory Panel [place] Adenovirus (Rapid PCR) B.pert (TEM-PCR) B.parapertussis DNA PCR C. pneumoniae DNA (PCR) Coronavirus OC43 (PCR) Coronavirus HKU1 (PCR) Coronavirus 229E (PCR) Coronavirus NL63 (PCR) Human Metapneumovir PCR Influenza A (RT-PCR) Influenza Type A (PCR) NEGATIVE Influenza B (RT-PCR) Influenza Type B (PCR) NEGATIVE M. pneumoniae (PCR) Parainfluenza 1 (PCR) Parainfluenza 2 (PCR) Parainfluenza 3 (PCR) Parainfluenza 4 (PCR) RSV (PCR) RSV RNA Qual (PCR) NEGATIVE Entero/Rhino (PCR) SARS-CoV-2 RNA (RT-PCR) NEGATIVE 11/25/22 11/25/22 11/25/22 22:45 22:48 23:58 WBC RBC Hgb Hct MCV MCH MCHC RDW Plt Count MPV Immature Gran % (Auto) Neut % (Auto) Lymph % (Auto) Douglas % (Auto) Eos % (Auto) Baso % (Auto) Lymph # (Auto) Douglas # (Auto) Eos # (Auto) Baso # (Auto) Abs Immat Gran (auto) Absolute Neuts (auto) Absolute Nucleated RBC Nucleated RBC % (auto) VBG pH 7.36 VBG pCO2 54 VBG pO2 39 VBG HCO3 31 H VBG O2 Saturation 59.0 VBG Base Excess 4.9 Sodium Potassium Chloride Carbon Dioxide Anion Gap BUN Creatinine Estim Creat Clear Calc Estimated GFR Random Glucose Lactic Acid 5.2 H* Lactic Acid F/U @ 2Hr Lactic Acid F/U @ 4Hr Calcium Magnesium Urine Color Yellow Urine Appearance Clear Urine pH 5.5 Ur Specific [place] >= 1.030 H Urine Protein Negative Urine Glucose (UA) >=1000 H Urine Ketones Negative Urine Blood Negative Urine Nitrite Negative Ur Leukocyte Esterase Negative Urine RBC 0-2 Urine WBC 0-5 Ur Squamous Epith Cells 0-2 Urine Bacteria None Seen Hyaline Casts 0-2 Urine Opiates Screen Urine Fentanyl Screen Ur Barbiturates Screen Ur Phencyclidine Scrn Ur Amphetamines Screen U Benzodiazepines Scrn Urine Cocaine Screen U Marijuana (THC) Screen Respiratory Panel [place] Adenovirus (Rapid PCR) B.pert (TEM-PCR) B.parapertussis DNA PCR C. pneumoniae DNA (PCR) Coronavirus OC43 (PCR) Coronavirus HKU1 (PCR) Coronavirus 229E (PCR) Coronavirus NL63 (PCR) Human Metapneumovir PCR Influenza A (RT-PCR) Influenza Type A (PCR) Influenza B (RT-PCR) Influenza Type B (PCR) M. pneumoniae (PCR) Parainfluenza 1 (PCR) Parainfluenza 2 (PCR) Parainfluenza 3 (PCR) Parainfluenza 4 (PCR) RSV (PCR) RSV RNA Qual (PCR) Entero/Rhino (PCR) SARS-CoV-2 RNA (RT-PCR) 11/25/22 11/26/22 11/26/22 23:58 00:05 01:10 WBC RBC Hgb Hct MCV MCH MCHC RDW Plt Count MPV Immature Gran % (Auto) Neut % (Auto) Lymph % (Auto) Douglas % (Auto) Eos % (Auto) Baso % (Auto) Lymph # (Auto) Douglas # (Auto) Eos # (Auto) Baso # (Auto) Abs Immat Gran (auto) Absolute Neuts (auto) Absolute Nucleated RBC Nucleated RBC % (auto) VBG pH VBG pCO2 VBG pO2 VBG HCO3 VBG O2 Saturation VBG Base Excess Sodium Potassium Chloride Carbon Dioxide Anion Gap BUN Creatinine Estim Creat Clear Calc Estimated GFR Random Glucose Lactic Acid Lactic Acid F/U @ 2Hr 7.5 H* Lactic Acid F/U @ 4Hr Calcium Magnesium Urine Color Urine Appearance Urine pH Ur Specific [place] Urine Protein Urine Glucose (UA) Urine Ketones Urine Blood Urine Nitrite Ur Leukocyte Esterase Urine RBC Urine WBC Ur Squamous Epith Cells Urine Bacteria Hyaline Casts Urine Opiates Screen POSITIVE H Urine Fentanyl Screen POSITIVE H Ur Barbiturates Screen Not Detected Ur Phencyclidine Scrn Not Detected Ur Amphetamines Screen Not Detected U Benzodiazepines Scrn Not Detected Urine Cocaine Screen Not Detected U Marijuana (THC) Screen Not Detected Respiratory Panel [place] See Note Adenovirus (Rapid PCR) Not Detected B.pert (TEM-PCR) Not Detected B.parapertussis DNA PCR Not Detected C. pneumoniae DNA (PCR) Not Detected Coronavirus OC43 (PCR) Not Detected Coronavirus HKU1 (PCR) Not Detected Coronavirus 229E (PCR) Not Detected Coronavirus NL63 (PCR) Not Detected Human Metapneumovir PCR Not Detected Influenza A (RT-PCR) Not Detected Influenza Type A (PCR) Influenza B (RT-PCR) Not Detected Influenza Type B (PCR) M. pneumoniae (PCR) Not Detected Parainfluenza 1 (PCR) Not Detected Parainfluenza 2 (PCR) Not Detected Parainfluenza 3 (PCR) Not Detected Parainfluenza 4 (PCR) Not Detected RSV (PCR) Not Detected RSV RNA Qual (PCR) Entero/Rhino (PCR) Not Detected SARS-CoV-2 RNA (RT-PCR) Not Detected 11/26/22 11/26/22 11/26/22 03:20 06:54 06:54 WBC 5.5 RBC 3.41 L Hgb 10.7 L Hct 32.2 L MCV 94.4 MCH 31.4 MCHC 33.2 RDW 12.1 Plt Count 228 MPV 9.4 Immature Gran % (Auto) 0.6 H Neut % (Auto) 84.9 H Lymph % (Auto) 11.7 L Douglas % (Auto) 2.8 Eos % (Auto) 0.0 Baso % (Auto) 0.0 Lymph # (Auto) 0.6 L [place] # (Auto) 0.2 Eos # (Auto) 0.0 Baso # (Auto) 0.0 Abs Immat Gran (auto) 0.03 Absolute Neuts (auto) 4.6 Absolute Nucleated RBC 0.000 Nucleated RBC % (auto) 0.0 VBG pH VBG pCO2 VBG pO2 VBG HCO3 VBG O2 Saturation VBG Base Excess Sodium 138 Potassium 4.2 Chloride 107 Carbon Dioxide 23 Anion Gap 12 BUN 10 Creatinine 0.64 Estim Creat Clear Calc 93.8 Estimated GFR > 60 Random Glucose 166 H Lactic Acid Lactic Acid F/U @ 2Hr Lactic Acid F/U @ 4Hr 6.6 H* Calcium 8.4 D Magnesium Urine Color Urine Appearance Urine pH Ur Specific [place] Urine Protein Urine Glucose (UA) Urine Ketones Urine Blood Urine Nitrite Ur Leukocyte Esterase Urine RBC Urine WBC Ur Squamous Epith Cells Urine Bacteria Hyaline Casts Urine Opiates Screen Urine Fentanyl Screen Ur Barbiturates Screen Ur Phencyclidine Scrn Ur Amphetamines Screen U Benzodiazepines Scrn Urine Cocaine Screen U Marijuana (THC) Screen Respiratory Panel [place] Adenovirus (Rapid PCR) B.pert (TEM-PCR) B.parapertussis DNA PCR C. pneumoniae DNA (PCR) Coronavirus OC43 (PCR) Coronavirus HKU1 (PCR) Coronavirus 229E (PCR) Coronavirus NL63 (PCR) Human Metapneumovir PCR Influenza A (RT-PCR) Influenza Type A (PCR) Influenza B (RT-PCR) Influenza Type B (PCR) M. pneumoniae (PCR) Parainfluenza 1 (PCR) Parainfluenza 2 (PCR) Parainfluenza 3 (PCR) Parainfluenza 4 (PCR) RSV (PCR) RSV RNA Qual (PCR) Entero/Rhino (PCR) SARS-CoV-2 RNA (RT-PCR) Discharge Plan Discharge Anticipated Discharge Date/Time: 11/26/22 12:04 Patient Disposition: Home, Self-Care Discharge Diagnosis: acute asthma exacerbation with hypoxia, viral pneumonia Referrals: Stephanie Sheikh MD [Primary Care Provider] - 1 Week Discharge Medications: New albuterol sulfate 90 mcg/actuation aerosol powdr breath activated 2 inh inhalation Q4-6H PRN (Reason: shortness of breath or wheezing) Qty: 1 0RF prednisone 20 mg tablet 40 mg PO DAILY Qty: 6 0RF Rx Instructions: Take 2 tabs (40mg) every morning x 3 days with food guaifenesin 200 mg/5 mL liquid 400 mg PO Q6H PRN (Reason: cough) Qty: 118 0RF Discontinued Primatene Mist 0.125 mg/actuation Hfa Aerosol Inhaler 1 puff INHALATION Q4H PRN (Reason: Shortness Of Breath Or Wheezing) Rx Instructions: may repeat once after 1 minute; do not exceed 8 inhalations per 24 hrs Discharge Orders: Discharge Order (Routine); Ordered 11/26/22 Ordered By: Naz Dejesus Diet: Advance to usual diet Activity on Discharge: As tolerated Stand Alone Forms: Patient Portal Discharge page Care Plan Goals: see below Health Concerns: Asthma exacerbation with hypoxia Viral pneumonia Pulmonary nodules Cigarette smoking Opiate abuse Plan of Treatment: Asthma exacerbation- your asthma was triggered by a viral upper respiratory infection. You have been treated with IV steroids during your admission as well as DuoNebs and albuterol nebulizer treatments. Initially DU did require supplemental oxygen which he was successfully weaned from. Your chest CT did reveal a viral pneumonia secondary to the initial viral infection. This will resolve spontaneously and only require symptomatic treatment. Due to not require any further antibiotic treatment. You can use guaifenesin (Robitussin) as needed for cough as well as your albuterol inhaler which has been prescribed. Use albuterol in place of the epinephrine inhaler you were given from the ED last year. He should also continue taking prednisone 40 mg every morning to continue treating the asthma exacerbation. Next dose due is tomorrow morning 11/27. I strongly advise you quit smoking as discussed. Your chest CT did show multiple small pulmonary nodules which could be linked to malignancy. It is important that you have a follow-up chest CT arranged by your PCP in 6-12 months as advised. You have declined nicotine patches but I do continue to recommend cold turkey smoking cessation or hypnosis. Your drug screen was positive for opiates and fentanyl which would not have been caused by your methadone. Please continue following with the methadone clinic and abstain from all recreational drug use. Follow-up with your PCP soon. Assessment: See above
== END 2022-11-26 13:03 | disposition home or self-care (01) ==
LOC: HO.ED 21:58 → HO.EDOVER 22:23
PROVIDERS: Nurse Practitioner Family; Student in an Organized Health Care Education/Training Program; Admitting Provider Physician Assistant; Emergency Provider Emergency Medicine Emergency Medical Services; PCP Internal Medicine; Visit Provider Physician Assistant
DX: J12.9 Viral pneumonia, unspecified (principal); J45.21 Mild intermittent asthma with (acute) exacerbation; J96.01 Acute respiratory failure with hypoxia; J45.20 Mild intermittent asthma, uncomplicated; B19.20 Unspecified viral hepatitis C without hepatic coma; R39.15 Urgency of urination; Z72.0 Tobacco use; Z20.822 Contact with and (suspected) exposure to COVID-19
CPT/HCPCS: 0241U; 36415; 71046; 71275; 80048; 80307; 81001; 82803; 83605; 83735; 85025; 87040; 87633; 94640; 99221; 99285; J0456; J0696; J1650; J2920; J2930; J3475; Q9967

== ENCOUNTER 2023-02-12 17:54 | Emergency (ER) | payer OTHER, SELFPAY ==
[2023-02-12 17:56] VITALS: BP 127/43; PULSE 76; RESP 18; TEMP 36.6; O2SAT 99; BMI 21.4
--- NOTE | 2023-02-12 17:56 | ED_ITS ---
HPI - Psych General Chief Complaint: ETOH/Substance Use <Mery Limon NP - Last Filed: 02/12/23 17:58> Stated Complaint: detox, psych eval <Mery Limon NP - Last Filed: 02/12/23 17:58> Time Seen by Provider: 02/12/23 20:07 <Mery Limon NP - Last Filed: 02/12/23 17:58> Source: patient <Paulette Ness MD - Last Filed: 02/12/23 22:23> Mode of arrival: ambulatory <Paulette Ness MD - Last Filed: 02/12/23 22:23> History of Present Illness HPI Narrative: 37-year-old female who presents, stating that she is at [facility] which is a sober house and had a relapse on heroin with last use today. Patient also reports depression and anxiety for which she is not on medication for nor is she in therapy and she denies SI/HI. <Paulette Ness MD - Last Filed: 02/12/23 22:23> Related Data Home Medications: Previous Rx's Medication Instructions Recorded albuterol sulfate 90 mcg/actuation 2 inh inhalation Q4-6H PRN 11/26/22 breath activated powder inhaler shortness of breath or wheezing #1 ea guaifenesin 200 mg/5 mL oral liquid 400 mg (10 mL) PO Q6H PRN cough 11/26/22 #118 mL prednisone 20 mg tablet 40 mg PO DAILY #6 tabs 11/26/22 <Mery Limon NP - Last Filed: 02/12/23 17:58> Allergies/Adverse Reactions: Allergies Allergy/AdvReac Type Severity Reaction Status Date / Time No Known Allergies Allergy Verified 02/12/23 18:00 <Mery Limon NP - Last Filed: 02/12/23 17:58> Review of Systems Review of Systems: Pertinent positives and negatives as stated in HPI <Paulette Ness MD - Last Filed: 02/12/23 22:23> PMFSH Past Medical History Source: nursing notes reviewed <Paulette Ness MD - Last Filed: 02/12/23 22:23> Medical History: Medical History Hepatitis C Mild intermittent asthma Opioid dependence Polysubstance abuse <Mery Limon NP - Last Filed: 02/12/23 17:58> Social History Social History: Social History Alcohol intake: former Patient Tobacco Use Status: Never used Tobacco Smoked in Last 30 Days: Yes Use of substances other than those prescribed or required for medical reasons: Yes Substance Use Type: Heroin and Marijuana Substance Use Frequency: Weekly Last Used Substance: Hours (ago) Advance Directives: Yes Advance Directives on File: Yes Advance Directives Date on File: 11/28/22 Patient : No service: No <Mery Limon NP - Last Filed: 02/12/23 17:58> Physical Exam Vital Signs: Vital Signs: Last Vital Signs Temp 97.6 F 02/12/23 20:05 Pulse 66 02/12/23 20:05 Resp 16 02/12/23 20:05 BP 119/65 02/12/23 20:05 Pulse Ox 98 02/12/23 20:05 O2 Del Method Room Air 02/12/23 17:56 BMI result Body Mass Index 21.4 <Mery Limon NP - Last Filed: 02/12/23 17:58> Vital Signs: Last Vital Signs Temp 97.6 F 02/12/23 20:05 Pulse 66 02/12/23 20:05 Resp 16 02/12/23 20:05 BP 119/65 02/12/23 20:05 Pulse Ox 98 02/12/23 20:05 O2 Del Method Room Air 02/12/23 17:56 BMI result Body Mass Index 21.4 VITAL SIGNS: Reviewed. GENERAL: Well developed, well nourished, in no acute distress. HEAD: Normocephalic/atraumatic EYES: PERRLA, EOMI EARS: Ext canals without abnormality, TMs non-bulging and non-erythematous NOSE: Nares patent bilateral OROPHARYNX: no oral lesions noted, posterior pharynx clear and non-erythematous without noted tonsillar enlargement/erythema/exudates NECK: Supple, no adenopathy LUNGS: Normal breath sounds. No adventitious sounds or accessory muscle use. SpO2<98> CARDIOVASCULAR: Regular rate and rhythm without noted murmurs ABDOMEN: Soft, non-tender, non-distended with bowel sounds. MUSCULOSKELETAL: No tenderness, deformities, or effusions noted on gross inspection. EXTREMITIES: No cyanosis, clubbing or edema. SKIN: Inspection of the skin reveals no rashes NEUROLOGIC: Alert and oriented x 4. Strength and sensation to light touch were grossly intact x 4. <Paulette Ness MD - Last Filed: 02/12/23 22:23> Course Course Course Narrative: This is a rapid medical exam. Deferred additional HPI, ROS, PE to primary provider. 37 yo female here seeking detox from opiates (on methadone 100mg), also seeking for assistance for her depression/anxiety. No SI/HI. Will obtain labs, KNOX, COVID screen. VSS <Mery Limon NP - Last Filed: 02/12/23 17:58> Medical Decision Making Medical Decision Making MDM Narrative: 37-year-old female with history and clinical presentation for seeking dual diagnosis admission for depression and detox. I have reviewed all investigations and workup and my interpretation is this is a patient who has relapsed on heroin and has subclinical depression/anxiety. Care team consultation has been placed. Patient placed in physician observation because the patient needed more time for evaluation by the care team. At the time observation was started the patient's vital signs were stable, patient is alert and oriented, neuro: Nonfocal, CV RRR, lungs clear <Paulette Ness MD - Last Filed: 02/12/23 22:23> Differential Diagnosis Please see the discussion above <Paulette Ness MD - Last Filed: 02/12/23 22:23> Lab Data Please see the discussion above <Paulette Ness MD - Last Filed: 02/12/23 22:23> Result Diagrams: 02/12/23 18:16 02/12/23 18:16 <Mery Limon NP - Last Filed: 02/12/23 17:58> Labs: Lab Results 02/12/23 02/12/23 02/12/23 Range/Units 18:16 18:16 18:16 WBC 8.2 (4.8-10.8) X10*3/uL RBC 3.90 L (4.20-5.50) X10*6/uL Hgb 12.3 (12.0-16.0) g/dl Hct 36.6 L (37.0-47.0) % MCV 93.8 (80.0-98.0) fL MCH 31.5 (27.0-33.0) pg MCHC 33.6 (31.0-35.0) g/dl RDW 11.9 (11.0-16.0) % Plt Count 269 (160-400) X10*3/uL MPV 9.2 L (9.4-12.3) fL Immature Gran % (Auto) 0.4 (0.0-0.4) % Neut % (Auto) 61.3 (45-73) % Lymph % (Auto) 29.1 (20-40) % [place] % (Auto) 6.7 (2-11) % Eos % (Auto) 1.9 (0-4) % Baso % (Auto) 0.6 (0-2) % Lymph # (Auto) 2.4 (1.2-4.9) X10*3/uL [place] # (Auto) 0.6 (0.1-1.2) X10*3/uL Eos # (Auto) 0.2 (0.0-0.4) X10*3/uL Baso # (Auto) 0.1 (0.0-0.2) X10*3/uL Abs Immat Gran (auto) 0.03 (0.00-0.03) X10*3/uL Absolute Neuts (auto) 5.0 (2.0-8.3) x10*3/uL Absolute Nucleated RBC 0.000 (0.0-0.012) X10*3/uL Nucleated RBC % (auto) 0.0 (0.0-0.2) /100WBC Sodium 142 (135-145) mmol/L Potassium 4.0 (3.3-5.1) mmol/L Chloride 101 (96-108) mmol/L Carbon Dioxide 32 H (22-29) mmol/L Anion Gap 13 (12-20) BUN 13 (9-16) mg/dL Creatinine 0.74 (0.5-1.4) mg/dL Estim Creat Clear Calc 89.0 Estimated GFR > 60 Random Glucose 121 H (60-115) mg/dL Calcium 9.1 D (8.4-10.2) mg/dL Total Bilirubin 0.5 (0.0-1.0) mg/dL Direct Bilirubin 0.2 (0.0-0.5) mg/dL AST 78 H (5-31) U/L ALT 164 H (0-31) U/L Alkaline Phosphatase 76 (39-117) U/L Total Protein 7.1 (6.5-8.0) g/dL Albumin 4.2 (3.5-5.0) g/dL Beta HCG, Quant < 2 mIU/mL Urine Test (NEGATIVE) Ethyl Alcohol < 10 mg/dL COVID-19 ([facility]) Negative (Negative) COVID-19 Clin Com See Note 02/12/23 Range/Units 22:02 WBC (4.8-10.8) X10*3/uL RBC (4.20-5.50) X10*6/uL Hgb (12.0-16.0) g/dl Hct (37.0-47.0) % MCV (80.0-98.0) fL MCH (27.0-33.0) pg MCHC (31.0-35.0) g/dl RDW (11.0-16.0) % Plt Count (160-400) X10*3/uL MPV (9.4-12.3) fL Immature Gran % (Auto) (0.0-0.4) % Neut % (Auto) (45-73) % Lymph % (Auto) (20-40) % [place] % (Auto) (2-11) % Eos % (Auto) (0-4) % Baso % (Auto) (0-2) % Lymph # (Auto) (1.2-4.9) X10*3/uL [place] # (Auto) (0.1-1.2) X10*3/uL Eos # (Auto) (0.0-0.4) X10*3/uL Baso # (Auto) (0.0-0.2) X10*3/uL Abs Immat Gran (auto) (0.00-0.03) X10*3/uL Absolute Neuts (auto) (2.0-8.3) x10*3/uL Absolute Nucleated RBC (0.0-0.012) X10*3/uL Nucleated RBC % (auto) (0.0-0.2) /100WBC Sodium (135-145) mmol/L Potassium (3.3-5.1) mmol/L Chloride (96-108) mmol/L Carbon Dioxide (22-29) mmol/L Anion Gap (12-20) BUN (9-16) mg/dL Creatinine (0.5-1.4) mg/dL Estim Creat Clear Calc Estimated GFR Random Glucose (60-115) mg/dL Calcium (8.4-10.2) mg/dL Total Bilirubin (0.0-1.0) mg/dL Direct Bilirubin (0.0-0.5) mg/dL AST (5-31) U/L ALT (0-31) U/L Alkaline Phosphatase (39-117) U/L Total Protein (6.5-8.0) g/dL Albumin (3.5-5.0) g/dL Beta HCG, Quant mIU/mL Urine Test NEGATIVE (NEGATIVE) Ethyl Alcohol mg/dL COVID-19 ([facility]) (Negative) COVID-19 Clin Com <Mery Limon, STAFF REGISTERED NURSE - Last Filed: 02/12/23 17:58> Lab Results 02/12/23 02/12/23 02/12/23 Range/Units 18:16 18:16 18:16 WBC 8.2 (4.8-10.8) X10*3/uL RBC 3.90 L (4.20-5.50) X10*6/uL Hgb 12.3 (12.0-16.0) g/dl Hct 36.6 L (37.0-47.0) % MCV 93.8 (80.0-98.0) fL MCH 31.5 (27.0-33.0) pg MCHC 33.6 (31.0-35.0) g/dl RDW 11.9 (11.0-16.0) % Plt Count 269 (160-400) X10*3/uL MPV 9.2 L (9.4-12.3) fL Immature Gran % (Auto) 0.4 (0.0-0.4) % Neut % (Auto) 61.3 (45-73) % Lymph % (Auto) 29.1 (20-40) % [place] % (Auto) 6.7 (2-11) % Eos % (Auto) 1.9 (0-4) % Baso % (Auto) 0.6 (0-2) % Lymph # (Auto) 2.4 (1.2-4.9) X10*3/uL [place] # (Auto) 0.6 (0.1-1.2) X10*3/uL Eos # (Auto) 0.2 (0.0-0.4) X10*3/uL Baso # (Auto) 0.1 (0.0-0.2) X10*3/uL Abs Immat Gran (auto) 0.03 (0.00-0.03) X10*3/uL Absolute Neuts (auto) 5.0 (2.0-8.3) x10*3/uL Absolute Nucleated RBC 0.000 (0.0-0.012) X10*3/uL Nucleated RBC % (auto) 0.0 (0.0-0.2) /100WBC Sodium 142 (135-145) mmol/L Potassium 4.0 (3.3-5.1) mmol/L Chloride 101 (96-108) mmol/L Carbon Dioxide 32 H (22-29) mmol/L Anion Gap 13 (12-20) BUN 13 (9-16) mg/dL Creatinine 0.74 (0.5-1.4) mg/dL Estim Creat Clear Calc 89.0 Estimated GFR > 60 Random Glucose 121 H (60-115) mg/dL Calcium 9.1 D (8.4-10.2) mg/dL Total Bilirubin 0.5 (0.0-1.0) mg/dL Direct Bilirubin 0.2 (0.0-0.5) mg/dL AST 78 H (5-31) U/L ALT 164 H (0-31) U/L Alkaline Phosphatase 76 (39-117) U/L Total Protein 7.1 (6.5-8.0) g/dL Albumin 4.2 (3.5-5.0) g/dL Beta HCG, Quant < 2 mIU/mL Urine Test (NEGATIVE) Ethyl Alcohol < 10 mg/dL COVID-19 ([facility]) Negative (Negative) COVID-19 Clin Com See Note 02/12/23 Range/Units 22:02 WBC (4.8-10.8) X10*3/uL RBC (4.20-5.50) X10*6/uL Hgb (12.0-16.0) g/dl Hct (37.0-47.0) % MCV (80.0-98.0) fL MCH (27.0-33.0) pg MCHC (31.0-35.0) g/dl RDW (11.0-16.0) % Plt Count (160-400) X10*3/uL MPV (9.4-12.3) fL Immature Gran % (Auto) (0.0-0.4) % Neut % (Auto) (45-73) % Lymph % (Auto) (20-40) % [place] % (Auto) (2-11) % Eos % (Auto) (0-4) % Baso % (Auto) (0-2) % Lymph # (Auto) (1.2-4.9) X10*3/uL [place] # (Auto) (0.1-1.2) X10*3/uL Eos # (Auto) (0.0-0.4) X10*3/uL Baso # (Auto) (0.0-0.2) X10*3/uL Abs Immat Gran (auto) (0.00-0.03) X10*3/uL Absolute Neuts (auto) (2.0-8.3) x10*3/uL Absolute Nucleated RBC (0.0-0.012) X10*3/uL Nucleated RBC % (auto) (0.0-0.2) /100WBC Sodium (135-145) mmol/L Potassium (3.3-5.1) mmol/L Chloride (96-108) mmol/L Carbon Dioxide (22-29) mmol/L Anion Gap (12-20) BUN (9-16) mg/dL Creatinine (0.5-1.4) mg/dL Estim Creat Clear Calc Estimated GFR Random Glucose (60-115) mg/dL Calcium (8.4-10.2) mg/dL Total Bilirubin (0.0-1.0) mg/dL Direct Bilirubin (0.0-0.5) mg/dL AST (5-31) U/L ALT (0-31) U/L Alkaline Phosphatase (39-117) U/L Total Protein (6.5-8.0) g/dL Albumin (3.5-5.0) g/dL Beta HCG, Quant mIU/mL Urine Test NEGATIVE (NEGATIVE) Ethyl Alcohol mg/dL COVID-19 ([facility]) (Negative) COVID-19 Clin Com <Paulette Ness MD - Last Filed: 02/12/23 22:23> External Record Review External record reviewed: Prior outpatient labs <Paulette Ness MD - Last Filed: 02/12/23 22:23> Discharge Plan Discharge Clinical Impression: Substance use disorder, Depression <Mery Limon NP - Last Filed: 02/12/23 17:58> Patient Disposition: Still a Patient <Mery Limon NP - Last Filed: 02/12/23 17:58> Prescriptions: No Action albuterol sulfate 90 mcg/actuation aerosol powdr breath activated 2 inh inhalation Q4-6H PRN (Reason: shortness of breath or wheezing) Qty: 1 0RF prednisone 20 mg tablet 40 mg PO DAILY Qty: 6 0RF Rx Instructions: Take 2 tabs (40mg) every morning x 3 days with food guaifenesin 200 mg/5 mL liquid 400 mg PO Q6H PRN (Reason: cough) Qty: 118 0RF <Mery Limon NP - Last Filed: 02/12/23 17:58>
[2023-02-12 18:20] LABS: MANUAL DIFF FLAG NO
[2023-02-12 18:27] LABS: Basophils Absolute Auto 0.1 X10*3/uL (0.0-0.2); Basophils Percent Auto 0.6 % (0-2); Eosinophils Absolute Auto 0.2 X10*3/uL (0.0-0.4); Eosinophils Percent Auto 1.9 % (0-4); Hematocrit 36.6 % (37.0-47.0); Hemoglobin 12.3 g/dl (12.0-16.0); Imm Gran Abs Auto 0.03 X10*3/uL (0.00-0.03); Imm Gran Pct Auto 0.4 % (0.0-0.4); Lymphocytes Absolute Auto 2.4 X10*3/uL (1.2-4.9); Lymphocytes Percent Auto 29.1 % (20-40); Mean Corpuscular HGB Conc 33.6 g/dl (31.0-35.0); Mean Corpuscular Hemoglobin 31.5 pg (27.0-33.0); Mean Corpuscular Volume 93.8 fL (80.0-98.0); Mean Platelet Volume 9.2 fL (9.4-12.3); Monocytes Absolute Auto 0.6 X10*3/uL (0.1-1.2); Monocytes Percent Auto 6.7 % (2-11); Neutrophils Percent Auto 61.3 % (45-73); Platelet Count 269 X10*3/uL (160-400); Red Cell Distribution Width 11.9 % (11.0-16.0); White Blood Count 8.2 X10*3/uL (4.8-10.8)
[2023-02-12 18:41] LABS: COVID-19 Test Negative (Negative); IDNOW Serial# 08D9AD1C
[2023-02-12 18:45] LABS: Alanine Aminotransferase 164 U/L (0-31); Albumin Level 4.2 g/dL (3.5-5.0); Alkaline Phosphatase 76 U/L (39-117); Anion Gap 13 (12-20); Aspartate Amino Transferase 78 U/L (5-31); Bilirubin Direct 0.2 mg/dL (0.0-0.5); Bilirubin Total 0.5 mg/dL (0.0-1.0); Blood Urea Nitrogen 13 mg/dL (9-16); Calcium 9.1 mg/dL (8.4-10.2); Carbon Dioxide 32 mmol/L (22-29); Chloride 101 mmol/L (96-108); Estimated Glomerular Filt Rate > 60; Ethanol < 10 mg/dL; Glucose Random 121 mg/dL (60-115); Sodium 142 mmol/L (135-145); Total Protein 7.1 g/dL (6.5-8.0)
[2023-02-12 20:05] VITALS: BP 119/65; PULSE 66; RESP 16; TEMP 36.4; O2SAT 98
[2023-02-12 21:56] LABS: HCG Quantitative < 2 mIU/mL
[2023-02-12 22:11] LABS: UPreg QC Valid YES
[2023-02-12 22:13] LABS: Urine Pregnancy NEGATIVE (NEGATIVE)
[2023-02-12 22:21] LABS: Amphetamine Screen Urine Not Detected (Not Detect); Barbiturates, Urine Not Detected (Not Detect); Benzodiazepines Screen Urine Not Detected (Not Detect); Cannabinoid Screen Urine POSITIVE (Not Detect); Cocaine Screen Urine POSITIVE (Not Detect); Fentanyl, urine POSITIVE (Not Detect); Opiate Screen Urine POSITIVE (Not Detect); Phencyclidine Screen Urine Not Detected (Not Detect)
[2023-02-13 00:24] VITALS: BP 114/62; PULSE 75; RESP 17; TEMP 36.4; O2SAT 96
--- NOTE | 2023-02-13 03:26 | PC.NURSE ---
Pt A&Ox4, states I'm in a new program and now having social anxiety because the change in environment . Denies any pain, calm and cooperative, denies SI/HI, auditory/visual hallucinations.
[2023-02-13 03:52] VITALS: BP 112/56; PULSE 72; RESP 18; O2SAT 97
--- NOTE | 2023-02-13 03:59 | PC.NURSE ---
Pt changed over, belongings secured.
--- NOTE | 2023-02-13 04:01 | PC.NURSE ---
Belongings in locker #12.
--- NOTE | 2023-02-13 05:02 | MHC.EDTECH ---
pt was changed over her belongings were put in the pod locker 12
[2023-02-13 07:51] VITALS: BP 102/60; PULSE 66; RESP 18; O2SAT 95
--- NOTE | 2023-02-13 08:27 | MHC.RECOVRN ---
Discussed with Sridevi Barry APRN. CARE Team to meet with pt prior to ATS bedsearch.
--- NOTE | 2023-02-13 12:39 | MHC.CARE ---
CARE Team met with Pt who presented to the ED with substance use / mental health complaints. CARE met with Pt in ED 10. Pt presents as alert, orientated and engaged. Pt reports experiencing social anxiety since moving into the [facility] 2 months ago. Pt is not endorsing current SI/HI/VH/AH. Pt reported wanting dual diagnosis unit when t/w asked to clarify she stated she wanted to get back on psychiatric medications as she was on them 2-3 years ago and it was helpful. CARE Team and Pt discussed different treatment options and levels of care . Plan for Pt to be referred to the recovery team for an ATS admission. Pt and t/w discussed PHP as a possibility after completion of ATS. CARE Team provided Pt for Pt resource booklet and Pt verbalized understanding of uiltization of resources. Pt requested methadone dose which t/w relayed information to RN.
--- NOTE | 2023-02-13 12:56 | PC.NURSE ---
Call placed to [facility] methadone clinic in [place] for verification of last methadone dose. Spoke with Maddie PAIZ who states last dose was 02/08 of 100mg with 02/09-02/14 take home methadone of 100mg each.
--- NOTE | 2023-02-13 13:12 | MHC.RECOVRN ---
This bond underwriter met w/ patient. Patient alert, awake, sitting up in bed. Patient requesting detox. Patient reports recovery time of 2 months, has been living at [facility]. Patient states some intermittent opiate use past 2 months, recurrence past few days, 3 bags IN daily. Patient states is on 100mg MTD daily at [facility]. Patient reports [facility] states patient will need to complete 10 days of treatment, to return to Sober Living. Patient states willing to go to any Detox facility, except [facility]. T/W to start Detox bedsearch.
[2023-02-13] MEDS: methADONE HCl 20 MG/2 ML ORAL.CONC 100 MG PO (13:19)
[2023-02-13 13:40] VITALS: BP 118/75; PULSE 66; RESP 18; O2SAT 96
--- NOTE | 2023-02-13 15:31 | MHC.RECOVRN ---
Addendum entered by Bela Blanca RN 02/13/23 15:57: Patient has been accepted to [facility] in [place] for 8pm Admission time. [employer] will schedule Lyft for patient. Original Note: Patient is on the phone currently completing phone intake at [facility].
[2023-02-13 16:00] VITALS: BP 109/62; PULSE 60; RESP 16; TEMP 36.9; O2SAT 97
--- NOTE | 2023-02-13 16:05 | MHC.RECOVRN ---
This bond writer spoke w/ Patients RN in the ED, reviewed [facility] is in process of Section 35ing patient.
--- NOTE | 2023-02-13 19:09 | MHC.EDTECH ---
pt ate 100 % of dinner drank 360 ml fluids .
--- NOTE | 2023-02-13 19:28 | MHC.RECOVSUP ---
? Reason for consult:OPI o? Current location:ED10? o? Identified substance use concern:? -? Seeking ATS (detox) -? Support ? Intervention: o? Community resources provided o? Harm reduction discussion ? Plan:Pt has an intake at 8 at [place], [place] ? Additional information:[facility] was able to order a LYFT and get this pt discharged and on her way to [facility] for ATS services.
== END 2023-02-13 19:26 | disposition other institution (70) ==
PROVIDERS: Nurse Practitioner Family; Emergency Provider Student in an Organized Health Care Education/Training Program
DX: F33.1 Major depressive disorder, recurrent, moderate (principal); F11.10 Opioid abuse, uncomplicated; Z79.899 Other long term (current) drug therapy; Z71.51 Drug abuse counseling and surveillance of drug abuser; Z20.822 Contact with and (suspected) exposure to COVID-19; Z20.828 Contact with and (suspected) exposure to other viral communicable diseases
CPT/HCPCS: 80048; 80076; 80307; 81025; 82077; 84702; 85025; 87635; 99285; S9485

== ENCOUNTER 2023-04-25 12:36 | Emergency (ER) | payer OTHER, SELFPAY ==
--- NOTE | 2023-04-25 12:39 | ED_ITS ---
HPI - General Adult General Chief complaint: Dental/Oral Stated complaint: Dental Pain Jaw Pain Time Seen by Provider: 04/25/23 14:30 Source: patient Mode of arrival: ambulatory Limitations: no limitations History of Present Illness HPI narrative: Patient is a 38 year old assigned female at with a history of asthma presenting to the emergency department today with left lower dental pain. Patient states that her left lower molar is rotting and she has tried getting into a dentist but they have not been able to see her. Patient states that she is having swelling and pain. Patient denies any dizziness, lightheadedness, abdominal pain, nausea, vomiting, fever, chills, blurry vision, double vision, loss of vision, chest pain, difficulty breathing, shortness of breath, back pain, night sweats, pain with urination, increased urinary frequency, increased urinary urgency, blood in her urine or stool, syncope or a near syncopal episode, recent trauma or falls, bowel incontinence, bladder incontinence, bowel retention, bladder retention, or any other complaints at this time. Onset (ago): day(s) Location: mouth Severity: mild Severity scale (1-10): 3 Quality: aching and dull Pain Consistency: constant Relieving factors: none Exacerbating factors: none Associated symptoms: denies other symptoms Treatments prior to arrival: none Related Data Previous Rx's Medication Instructions Recorded albuterol sulfate 90 mcg/actuation 2 inh inhalation Q4-6H PRN 11/26/22 breath activated powder inhaler shortness of breath or wheezing #1 ea guaifenesin 200 mg/5 mL oral liquid 400 mg (10 mL) PO Q6H PRN cough 11/26/22 #118 mL prednisone 20 mg tablet 40 mg PO DAILY #6 tabs 11/26/22 chlorhexidine gluconate 0.12 % 15 ml buccal BID #118 mL 04/25/23 mouthwash (Peridex) naproxen 500 mg tablet 500 mg PO BID 7 days #14 tabs 04/25/23 penicillin V potassium 500 mg 500 mg PO BID 10 days #20 tabs 04/25/23 tablet Allergies Allergy/AdvReac Type Severity Reaction Status Date / Time No Known Allergies Allergy Verified 02/12/23 18:00 Review of Systems Constitutional: Constitutional: Reports no additional constitutional complaints, Denies chills, Denies fever(s) and Denies night sweats Eyes: Eyes: Reports no additional eye complaints, Denies blurry vision, Denies change in vision, Denies diplopia, Denies eye discharge, Denies loss of vision and Denies eye pain ENT: Denies dizziness Comments: left lower dental pain Cardiovascular: Cardiovascular: Reports no additional cardiovascular complaints, Denies chest pain, Denies lightheadedness, Denies Loss of Consciou sness and Denies dyspnea Respiratory: Respiratory: Reports no additional respiratory complaints and Denies dyspnea Gastrointestinal: Gastrointestinal: Reports no additional gastrointestinal complaints, Denies abdominal pain, Denies melena, Denies hematochezia, Denies change in bowel habits and Denies change in stool character Genitourinary: Genitourinary: Denies hematuria, Denies urinary frequency, Denies dysuria, Denies urinary incontinence, Denies urinary hesitancy and Denies urinary urgency Musculoskeletal: Musculoskeletal: Reports no additional musculoskeletal complaints, Denies numbness and Denies tingling Neurologic: Denies dizziness, Denies loss of vision, Denies numbness and Denies tingling Psychiatric: Psychiatric: Reports no additional psychiatric complaints Endocrine: Endocrine: Reports no additional endocrine complaints Hematologic/Lymphatic: Hematologic/Lymphatic: Reports no additional hematologic/lymphatic complaints Allergic/Immunologic: Allergic/Immunologic: Reports no additional allergic/immunologic complaints [facility] Past Medical History Attestation statement: The following information was validated with the patient. Source: old records reviewed and nursing notes reviewed Medical History Hepatitis C Mild intermittent asthma Opioid dependence Polysubstance abuse Social History Social History Alcohol intake: former Patient Tobacco Use Status: Never used Tobacco Substance Use Type: Heroin and Marijuana Advance Directives: Yes Advance Directives on File: Yes Advance Directives Date on File: 11/28/22 service: No Physical Exam ED Vital Signs: Vital Signs - 24 hr 04/25/23 12:44 Temperature 97.8 F Pulse Rate 76 Respiratory Rate 18 Blood Pressure 95/59 L Pulse Oximetry 98 Oxygen Delivery Method Room Air BMI result Body Mass Index 22.3 Const General: cooperative, no acute distress, alert and awake Nutritional Appearance: well nourished Orientation/consciousness: patient oriented x3 Limitations: no limitations HENMT Head: Yes normal to inspection and Yes atraumatic Ears: hearing grossly normal bilaterally and external ears normal General nose exam: Normal external nose present, no nasal discharge noted and no epistaxis Face and sinus: Yes normal facial exam, No abrasion and No laceration Mouth: Normal oral and palatal mucosa present, no drooling, no muffled voice and other (minimal swelling behind tooth 17) Eyes General: appearance normal, both eyes and all related structures Periorbital: periorbital findings normal Eyelids: Yes eyelids normal Conjunctivae: conjunctivae normal Pupils: Equal, round and reactive pupils present EOM: EOMs intact bilaterally Neck Neck: Yes normal visual inspection, Yes full ROM and Yes no lymphadenopathy Chest Chest palpation & inspection: normal inspection of the chest Resp Effort & Inspection: normal respiratory effort and able to speak in complete sentences GI Inspection: Yes normal to inspection Neuro General: patient oriented x3 and moves all extremities Cranial nerves: Yes Equal, round and reactive pupils present Cognition (Neuro): normal cognition Motor exam (neuro): 5/5 motor strength present throughout Sensory Exam: Normal double simultaneous stimulation for sensation Coordination: [id number] test normal Extrem General: Yes normal to inspection, Yes full ROM and Yes capillary refill normal Psych Appearance: grossly normal Mental Status: mental status grossly normal Affect: normal affect Attitude: cooperative Thought process: Normal thought process present Thought content: Normal thought content present Insight: Good insight present (Psych) Course Course Course Narrative: This is an RME: Additional HPI, ROS, PE not included below will be deferred to primary provider. Patient is a 38 year old female presenting with L upper and lower tooth pain . patient reports difficulty getting an appointment with a dentist. Patient reports left sided tooth pain that radiates to her left ear and down the left side of her neck. Patient denies fever, chills, nigh sweats, chest pain, and abdominal pain. Plan: labs, imaging. Medical Decision Making Medical Decision Making MDM Narrative: Patient is a 38 year old assigned female at with a history of asthma presenting to the emergency department today with left lower dental pain. Patient's physical exam showed minimal swelling just posterior to tooth #17 but no fluctuance. I explained my physical exam findings to the patient. I answered all questions asked by the patient. I stressed the importance of the patient taking her medication as prescribed. I stressed the importance of the patient following up with her primary care provider and a dentist. I stressed the importance of the patient returning to the emergency department immediately if her symptoms were to worsen or if she were to develop any dizziness, shortness of breath, difficulty breathing, chest pain, blurry vision, loss of vision, [place], vomiting, abdominal pain, fever, chills, back pain, or any other complaints. Patient verbalized agreement and understanding with this treatment plan and discharge. Differential Diagnosis Differential Diagnoses: The differential diagnosis associated with the presentation includes dental abscess dental caries mouth pain dental pain Discharge Plan Discharge Clinical Impression: Dental abscess Patient Disposition: Home, Self-Care Instructions: Dental Abscess (ED) Additional Instructions: Follow up with your primary care provider and a dentist. Return to the emergency department immediately if your symptoms worsen or if you develop any dizziness, shortness of breath, difficulty breathing, chest pain, blurry vision, loss of vision, nausea, vomiting, abdominal pain, fever, chills, back pain, or any other complaints. Call or visit any of the clinics below to establish with a dentist: [facility] [address] [place] [address] [facility] [address] [facility], [address] [address] [facility] [address] [place] [id number] [facility] [address] [place] [address] [place] [address] [place] [address] Prescriptions: New penicillin V potassium 500 mg tablet 500 mg PO BID 10 Days Qty: 20 0RF naproxen 500 mg tablet 500 mg PO BID 7 Days Qty: 14 0RF chlorhexidine gluconate [Peridex] 0.12 % mouthwash 15 ml buccal BID Qty: 118 0RF No Action albuterol sulfate 90 mcg/actuation aerosol powdr breath activated 2 inh inhalation Q4-6H PRN (Reason: shortness of breath or wheezing) Qty: 1 0RF prednisone 20 mg tablet 40 mg PO DAILY Qty: 6 0RF Rx Instructions: Take 2 tabs (40mg) every morning x 3 days with food guaifenesin 200 mg/5 mL liquid 400 mg PO Q6H PRN (Reason: cough) Qty: 118 0RF Referrals: [facility] [place] Family Medicine [Provider Group] (Call to establish and follow up with a primary care provider. If you already have a primary care provider, please follow up with them.) [facility] [place] Primary Care, [facility] [Provider Group] (Call to establish and follow up with a primary care provider. If you already have a primary care provider, please follow up with them.) [facility] [place] [facility] [Provider Group] (Call to establish and follow up with a primary care provider. If you already have a primary care provider, please follow up with them.) Interventions: ED Discharge Assessment Last Done: 04/25/23 14:41 Print Language: Swedish
[2023-04-25 12:44] VITALS: BP 95/59; PULSE 76; RESP 18; TEMP 36.6; O2SAT 98; BMI 22.3
== END 2023-04-25 14:42 | disposition home or self-care (01) ==
PROVIDERS: Emergency Provider Emergency Medicine Emergency Medical Services
DX: K04.7 Periapical abscess without sinus (principal); K08.89 Other specified disorders of teeth and supporting structures
CPT/HCPCS: 99282; 99283

== ENCOUNTER 2023-09-26 11:24 | Observation (INO) | payer OTHER, SELFPAY ==
--- NOTE | ~2023-09-26 | XR_ITS ---
EXAMINATION: XR CHEST CLINICAL INFORMATION: Cough and shortness of breath COMPARISON: None available. TECHNIQUE: 2 views of the chest were obtained. FINDINGS: No significant abnormality is noted involving the heart, lungs, mediastinum, bony thorax or soft tissues. XR/XR chest 2V IMPRESSION: Unremarkable chest examination.
[2023-09-26 11:29] VITALS: BP 134/95; PULSE 86; RESP 22; TEMP 36.4; O2SAT 95; BMI 24.0
--- NOTE | 2023-09-26 11:29 | ED_ITS ---
HPI - URI/Sore Throat General Chief Complaint: Dyspnea Stated Complaint: trouble breathing Time Seen by Provider: 09/26/23 14:21 Source: patient, RN notes reviewed and old records reviewed Mode of arrival: ambulatory History of Present Illness HPI Narrative: 38-year-old female with a past medical history of pneumonia, asthma, hypoxic respiratory failure, hepatitis-C, polysubstance abuse, presenting to the ED complaining of nonproductive cough, SOB, and chest tightness worsening over the past week. Admits to using inhalers at home however ran out last night. Denies known fever chills, pedal edema, calf tenderness, recent travel, sick contacts, recent steroid use Related Data Previous Rx's Medication Instructions Recorded albuterol sulfate 90 mcg/actuation 2 inh inhalation Q4-6H PRN 11/26/22 breath activated powder inhaler shortness of breath or wheezing #1 ea guaifenesin 200 mg/5 mL oral liquid 400 mg (10 mL) PO Q6H PRN cough 11/26/22 #118 mL prednisone 20 mg tablet 40 mg (2 x 20 mg) PO DAILY #6 tabs 11/26/22 chlorhexidine gluconate 0.12 % 15 ml buccal BID #118 mL 04/25/23 mouthwash (Peridex) naproxen 500 mg tablet 500 mg PO BID 7 days #14 tabs 04/25/23 penicillin V potassium 500 mg 500 mg PO BID 10 days #20 tabs 04/25/23 tablet Allergies Allergy/AdvReac Type Severity Reaction Status Date / Time No Known Allergies Allergy Verified 02/12/23 18:00 Review of Systems 2 Review of Systems: Constitutional: No Fever, No Chills ENT/Mouth: No Ear Pain, No Nasal Congestion, No sore throat, No Rhinorrhea, No Swallowing Difficulty Cardiovascular: +Chest Pain, + SOB Respiratory: + Cough, No Sputum, + Wheezing Gastrointestinal: No Nausea, No Vomiting, No Diarrhea, No Constipation, No Abdominal pain Musculoskeletal: No joint pain, No Myalgias, No Joint Swelling Skin: No Skin Lesions, No rash Neuro: No Weakness, No Numbness, No Paresthesias Yes all other systems are reviewed and are negative Constitutional: Constitutional: Reports as per [facility] Past Medical History Attestation statement: The following information was validated with the patient. Source: old records reviewed Medical History Hepatitis C Opioid dependence Polysubstance abuse Mild intermittent asthma Social History Social History Alcohol intake: former Patient Tobacco Use Status: Never used Tobacco Substance Use Type: Heroin and Marijuana Advance Directives: Yes Advance Directives on File: Yes Advance Directives Date on File: 11/28/22 service: No Physical Exam 2 Vital Signs: Vital Signs: Last Vital Signs Temp 97.6 F 09/26/23 11:29 Pulse 78 09/26/23 15:46 Resp 18 09/26/23 15:46 BP 134/95 H 09/26/23 11:29 Pulse Ox 95 09/26/23 11:29 O2 Del Method Room Air 09/26/23 11:29 BMI result Body Mass Index 24.0 Const: General: cooperative, healthy appearing and no acute distress O rientation/consciousness: patient oriented x3 Limitations: no limitations HEENT: Head: Yes normal to inspection and Yes atraumatic Ears: hearing grossly normal bilaterally General nose exam: Normal external nose present Face and sinus: Yes normal facial exam Eyes: General: appearance normal, both eyes and all related structures EOM: EOMs intact bilaterally Neck: Neck: Yes normal visual inspection and Yes no meningeal signs Resp: Effort & Inspection: normal respiratory effort and no respiratory distress Auscultation: wheezes expiratory wheezes, inspiratory wheezes and throughout Cardio: Rate: regular rate Heart sounds: S1 normal heart sound present and S2 normal heart sound present Skin: Rashes: no rashes Wounds: no wounds Neuro: General: patient oriented x3, tone normal and no meningeal signs C ranial nerves: Yes CN's II-XII intact bilaterally Gait exam (Neuro): Normal gait present Extrem: General: Yes normal to inspection and Yes no pedal edema Course Course Course Narrative: This is an RME: Additional HPI, ROS, PE not included below will be deferred to primary provider. Patient is a 38-year-old female who presents emergency department for evaluation of nonproductive cough, shortness of breath, states symptoms are typically worse at night. Has been sick for the past 2 weeks. Chest pain only with cough and deep inspiration. Has history of asthma. She has ran out of her albuterol inhaler. LS tight on inspiration with expiratory wheezing. Plan: viral testing, CXR -no leukocytosis. Labs reassuring. Troponin negative -COVID & FLU negative XR chest 2V IMPRESSION: Unremarkable chest examination. -1530--on re-evaluation after DuoNeb patient still with diffuse expiratory wheeze. Satting 90% on room air. Will give additional DuoNeb and IV magnesium. Patient will likely need admission Medications Administered Generic Name Dose Route Start Last Admin Trade Name Freq PRN Reason Stop Dose Admin Magnesium Sulfate 2 gm in 50 mls @ 25 mls/hr 09/26/23 15:42 09/26/23 16:09 Magnesium Sulfate/H2o IV 09/26/23 17:41 25 mls/hr ONCE ONE Administration Discontinued Medications Generic Name Dose Route Start Last Admin Trade Name Freq PRN Reason Stop Dose Admin Albuterol Sulfate 5 mg/ 7.5 mg 09/26/23 15:41 09/26/23 15:46 Albuterol Sulfate 2.5 mg INHALE 09/26/23 15:42 7.5 mg ONCE ONE Administration Albuterol Sulfate 5 mg/ 0 mg 09/26/23 14:32 09/26/23 14:40 Albuterol/Ipratropium 3 ml INHALE 09/26/23 14:33 10 each ONCE ONE Administration Methylprednisolone Sodium Succinate 125 mg 09/26/23 14:21 09/26/23 14:53 Methylprednisolone Sod Succ 125 Mg/2 Ml Vial IVPUSH 09/26/23 14:22 125 mg ONCE ONE Administration Medical Decision Making Medical Decision Making MDM Narrative: 38-year-old female with a past medical history of pneumonia, asthma, hypoxic respiratory failure, hepatitis-C, polysubstance abuse, presenting to the ED complaining of nonproductive cough, SOB, and chest tightness worsening over the past week. On exam tachypneic, satting 95% on room air, inspiratory and expiratory wheezes noted throughout. Concern for asthma exacerbation vs viral illness vs pneumonia vs bronchitis. Lower suspicion for ACS/PE or DVT Plan: Viral testing, CXR, labs, DuoNeb, IV Solu-Medrol, re-evaluate Please refer to course for remaining clinical decision making, interpretation of labs/imaging results, and discussions with consultants and/or family members. Differential Diagnosis Differential Diagnoses: The differential diagnosis associated with the presentation includes As above Admission/Observation Consideration of admission/observation: Escalation of care including admission/observation considered Lab Data [facility] Lab Attestation statement: I reviewed the patient's lab results. 09/26/23 14:38 09/26/23 14:38 Labs: Lab Results 09/26/23 09/26/23 Range/Units 11:39 14:38 WBC 7.2 (4.8-10.8) X10*3/uL RBC 4.59 (4.20-5.50) X10*6/uL Hgb 14.2 (12.0-16.0) g/dl Hct 42.6 (37.0-47.0) % MCV 92.8 (80.0-98.0) fL MCH 30.9 (27.0-33.0) pg MCHC 33.3 (31.0-35.0) g/dl RDW 11.9 (11.0-16.0) % Plt Count 320 (160-400) X10*3/uL MPV 8.9 L (9.4-12.3) fL Immature Gran % (Auto) 0.1 (0.0-0.4) % Neut % (Auto) 42.6 L (45-73) % Lymph % (Auto) 39.9 (20-40) % Price % (Auto) 7.3 (2-11) % Eos % (Auto) 9.1 H (0-4) % Baso % (Auto) 1.0 (0-2) % Lymph # (Auto) 2.9 (1.2-4.9) X10*3/uL Price # (Auto) 0.5 (0.1-1.2) X10*3/uL Eos # (Auto) 0.7 H (0.0-0.4) X10*3/uL Baso # (Auto) 0.1 (0.0-0.2) X10*3/uL Abs Immat Gran (auto) 0.01 (0.00-0.03) X10*3/uL Absolute Neuts (auto) 3.1 (2.0-8.3) x10*3/uL Absolute Nucleated RBC 0.000 (0.0-0.012) X10*3/uL Nucleated RBC % (auto) 0.0 (0.0-0.2) /100WBC Sodium 140 (135-145) mmol/L Potassium 4.8 (3.3-5.1) mmol/L Chloride 100 (96-108) mmol/L Carbon Dioxide 34 H (22-29) mmol/L Anion Gap 11 L (12-20) BUN 9 (9-16) mg/dL Creatinine 0.73 (0.5-1.4) mg/dL Estim Creat Clear Calc 89.3 Estimated GFR > 60 Random Glucose 63 (60-115) mg/dL Calcium 10.2 D (8.4-10.2) mg/dL Troponin I High Sens < 2.7 (<3.5-17.0) ng/L COVID-19 ([facility]) Negative (Negative) COVID-19 Clin Com See Note Influenza Type A (ISAAC) Negative (Negative) Influenza Type B (ISAAC) Negative (Negative) Influenza A & B Note See Note Independent Interpretation I performed an independent interpretation of an: EKG and Plain X-Ray Radiology Impression Discussion of test interpretation with radiology: I have reviewed the radiologist's reading. External Record Review External record reviewed: Inpatient record, Office record, Outpatient record, Prior outpatient labs, Prior outpatient radiology, Primary care record and Outside ED record Tests considered The following testing was considered but not selected: As above Chronic Conditions Patient?s care impacted by: Other (asthma) Critical Care Time Critical Care Time Critical Care Time: Yes Total Critical Care Time: 40 Attestation: I have personally provided critical care time exclusive of time spent on separately billable procedures. Time includes review of lab data, radiology results, discussion with consultants, and monitoring for potential decompensation. Intervention performed as documented. Discharge Plan Discharge Clinical Impression: Asthma exacerbation Patient Disposition: Admitted As Inpatient
[2023-09-26 12:07] LABS: COVID-19 Test Negative (Negative); IDNOW Serial# 08D9AD1C
[2023-09-26 12:08] LABS: IDNOW Serial# BCCEAD1C; Influenza A Negative (Negative); Influenza B2 Negative (Negative)
--- NOTE | 2023-09-26 14:22 | ECG_ITS ---
Test Reason : DYSPNEA Blood Pressure : / mmHG Vent. Rate : 074 BPM Atrial Rate : 074 BPM P-R Int : 110 ms QRS Dur : 094 ms QT Int : 414 ms P-R-T Axes : 049 086 -32 degrees QTc Int : 459 ms Sinus rhythm with sinus arrhythmia with short RI Incomplete right bundle branch block T wave abnormality, consider inferior ischemia Abnormal ECG No previous ECGs available Referred By: Mariel Back Electronically Signed By:SOLITARIO SANFORD MD
[2023-09-26 14:40] VITALS: PULSE 76; RESP 21; O2SAT 93
[2023-09-26] MEDS: Albuterol Sulfate 5 MG, Albuterol/Iprat 2.5/0.5MG 3 ML 3 ML INHALE (14:40)
[2023-09-26 14:44] LABS: MANUAL DIFF FLAG NO
[2023-09-26 14:46] LABS: Basophils Absolute Auto 0.1 X10*3/uL (0.0-0.2); Eosinophils Absolute Auto 0.7 X10*3/uL (0.0-0.4); Eosinophils Percent Auto 9.1 % (0-4); Hematocrit 42.6 % (37.0-47.0); Hemoglobin 14.2 g/dl (12.0-16.0); Imm Gran Abs Auto 0.01 X10*3/uL (0.00-0.03); Imm Gran Pct Auto 0.1 % (0.0-0.4); Lymphocytes Absolute Auto 2.9 X10*3/uL (1.2-4.9); Lymphocytes Percent Auto 39.9 % (20-40); Mean Corpuscular HGB Conc 33.3 g/dl (31.0-35.0); Mean Corpuscular Hemoglobin 30.9 pg (27.0-33.0); Mean Corpuscular Volume 92.8 fL (80.0-98.0); Mean Platelet Volume 8.9 fL (9.4-12.3); Monocytes Absolute Auto 0.5 X10*3/uL (0.1-1.2); Monocytes Percent Auto 7.3 % (2-11); Neutrophils Absolute Auto 3.1 x10*3/uL (2.0-8.3); Neutrophils Percent Auto 42.6 % (45-73); Platelet Count 320 X10*3/uL (160-400); Red Blood Count 4.59 X10*6/uL (4.20-5.50); Red Cell Distribution Width 11.9 % (11.0-16.0); White Blood Count 7.2 X10*3/uL (4.8-10.8)
[2023-09-26] MEDS: methylPREDNISolone Sod Succ 125 MG/2 ML VIAL IVPUSH (14:53)
[2023-09-26 15:03] LABS: Anion Gap 11 (12-20); Blood Urea Nitrogen 9 mg/dL (9-16); Calcium 10.2 mg/dL (8.4-10.2); Carbon Dioxide 34 mmol/L (22-29); Chloride 100 mmol/L (96-108); Creatinine Clr Calc Pharmacy 89.3; Estimated Glomerular Filt Rate > 60; Glucose Random 63 mg/dL (60-115); Potassium 4.8 mmol/L (3.3-5.1); Sodium 140 mmol/L (135-145)
[2023-09-26 15:11] LABS: Troponin-I High Sensitivity < 2.7 ng/L (<3.5-17.0)
[2023-09-26 15:46] VITALS: PULSE 78; RESP 18; O2SAT 95
[2023-09-26] MEDS: Albuterol Sulfate 5 MG, Albuterol Sulfate (0.083%) 2.5 MG 7.5 MG INHALE (15:46)
[2023-09-26] MEDS: Magnesium Sulfate/H2O 2 GM/50 ML PIGGYBACK IV (16:09)
--- NOTE | 2023-09-26 16:58 | PM.IMHP ---
History of Present Illness Date of Service: 09/26/23 Chief Complaint: Shortness of breath 38-year-old female with past medical history significant for asthma hepatitis-C and polysubstance abuse presents to the emergency room with worsening shortness of breath that has not responded to her inhaler. She states last night she ran out of her inhaler and her breathing became worse over time. Presented to the emergency room where she received a DuoNeb therapy and steroids and feels somewhat better. She will be admitted observation for continuing treatment of same Review of Systems Review of Systems: Denies chest pain Admit shortness of breath with exertion Denies nausea vomiting diarrhea Denies fever chills COUNT INCLUDES THE [facility] Medical History (Updated 09/26/23 @ 16:59 by Marko Montez DO) Hepatitis C Opioid dependence Polysubstance abuse Mild intermittent asthma Social History Alcohol intake: former Patient Tobacco Use Status: Never used Tobacco Substance Use Type: Heroin and Marijuana Advance Directives: Yes Advance Directives on File: Yes Advance Directives Date on File: 11/28/22 service: No Meds Allergies Allergy/AdvReac Type Severity Reaction Status Date / Time No Known Allergies Allergy Verified 02/12/23 18:00 Active Medications: Current Medications Acetaminophen (Acetaminophen 325 Mg Tablet) 650 mg PO Q6H PRN PRN Reason: Pain, Mild (Pain Scale 1-3) Al Hydroxide/Mg Hydroxide (Magnesium Hydrox/Alum Hydrox 30 Ml Oral.Susp) 30 ml PO Q4H PRN PRN Reason: Heartburn/Nausea Albuterol Sulfate 2.5 mg/ (Albuterol/Ipratropium 3 ml) 0 mg INHALE Q4H JACOB Enoxaparin Sodium (Enoxaparin Sodium 40 Mg/0.4 Ml Syringe) 40 mg SUBCUT Q24H JACOB Magnesium Sulfate (Magnesium Sulfate/H2o) 2 gm in 50 mls @ 25 mls/hr IV ONCE ONE Stop: 09/26/23 17:41 Last Admin: 09/26/23 16:09 Dose: 25 mls/hr Methylprednisolone Sodium Succinate (Methylprednisolone Sod Succ 125 Mg/2 Ml Vial) 60 mg IVPUSH Q6H JACOB Ondansetron HCl (Ondansetron Hcl 4 Mg/2 Ml Vial) 4 mg IVPUSH Q8H PRN PRN Reason: Nausea and Vomiting Sodium Chloride (0.9 % Sodium Chloride Flush 3 Ml Syringe) 3 ml IVFLUSH QSHIFT [facility] Physical Exam Vital Signs and Narrative: Vital Signs: Last Vital Signs Temp 97.6 F 09/26/23 11:29 Pulse 78 09/26/23 15:46 Resp 18 09/26/23 15:46 BP 134/95 H 09/26/23 11:29 Pulse Ox 95 09/26/23 11:29 O2 Del Method Room Air 09/26/23 11:29 BMI result Body Mass Index 24.0 Results Labs 09/26/23 14:38 09/26/23 14:38 Labs: Laboratory Results - last 24 hr 09/26/23 09/26/23 11:39 14:38 MCV 92.8 MCH 30.9 MCHC 33.3 RDW 11.9 Plt Count 320 MPV 8.9 L Immature Gran % (Auto) 0.1 Neut % (Auto) 42.6 L Lymph % (Auto) 39.9 [place] % (Auto) 7.3 Eos % (Auto) 9.1 H Baso % (Auto) 1.0 Lymph # (Auto) 2.9 [place] # (Auto) 0.5 Eos # (Auto) 0.7 H Baso # (Auto) 0.1 Abs Immat Gran (auto) 0.01 Absolute Neuts (auto) 3.1 Absolute Nucleated RBC 0.000 Nucleated RBC % (auto) 0.0 Anion Gap 11 L Estim Creat Clear Calc 89.3 Estimated GFR > 60 Random Glucose 63 Calcium 10.2 D COVID-19 ([facility]) Negative COVID-19 Clin Com See Note Influenza Type A (ISAAC) Negative Influenza Type B (ISAAC) Negative Influenza A & B Note See Note Imaging Radiologist's Impressions: Impressions Chest X-Ray 09/26/23 11:49 IMPRESSION: Unremarkable chest examination. Assessment and Plan (1) Asthma exacerbation: Qualifiers: Asthma severity: mild Asthma persistence: intermittent Qualified Code(s): J45.21 - Mild intermittent asthma with (acute) exacerbation Status: Acute (2) Polysubstance abuse: Status: Acute Plan 38-year-old female with known history of asthma presents with worsening exacerbation despite inhaler. Ran out of inhaler last night and breathing has progressively got worse. In emergency room responded well to DuoNeb and IV Solu-Medrol 1. Asthma exacerbation (mild intermittent) -DuoNebs q.4 hours while awake -IV Solu-Medrol pulse dose -azithromycin for pleomorphic effect 2. Polysubstance abuse -patient states methadone 140 mg daily -addiction Medicine consult in a.m. Lovenox Full code Patient will require 1 night hospitalization for IV steroids and DuoNebs to treat as beta exacerbation. Quality Stroke Does the patient have a stroke diagnosis?: No VTE Prior VTE?: No VTE Risk Level:: Medical - moderate - high VTE Device Contraindication: Treatment Not Indicated VTE Drug Contraindication: N/A - Med Ordered
[2023-09-26] MEDS: Azithromycin 500 MG TABLET PO (17:12)
[2023-09-26] MEDS: Enoxaparin Sodium 40 MG/0.4 ML SYRINGE SUBCUT (17:12)
--- NOTE | 2023-09-26 17:23 | PM.IMHP ---
History of Present Illness Date of Service: 09/26/23 Attending physician on admission: Terence Marinelli Chief Complaint: SOB Pt is a 38-year-old female with a PMH significant for?moderate persistent asthma, hepatitis-C, history of polysubstance abuse, current every day smoker (though only smoking 1 cigarette daily due to illness), and opioid dependence on methadone who presents to the ED with? In the ED pt was Labs were significant for CXR showed CT? EKG demonstrated Pt was treated with Pt will be admitted to the hospital [facility] Medical History (Updated 09/26/23 @ 16:59 by Marko Montez DO) Hepatitis C Opioid dependence Polysubstance abuse Mild intermittent asthma Social History Alcohol intake: former Patient Tobacco Use Status: Never used Tobacco Substance Use Type: Heroin and Marijuana Advance Directives: Yes Advance Directives on File: Yes Advance Directives Date on File: 11/28/22 service: No Meds Allergies Allergy/AdvReac Type Severity Reaction Status Date / Time No Known Allergies Allergy Verified 02/12/23 18:00 Active Medications: Current Medications Acetaminophen (Acetaminophen 325 Mg Tablet) 650 mg PO Q6H PRN PRN Reason: Pain, Mild (Pain Scale 1-3) Al Hydroxide/Mg Hydroxide (Magnesium Hydrox/Alum Hydrox 30 Ml Oral.Susp) 30 ml PO Q4H PRN PRN Reason: Heartburn/Nausea Azithromycin (Azithromycin 500 Mg Tablet) 500 mg PO Q24H JACOB Stop: 09/28/23 17:01 Last Admin: 09/26/23 17:12 Dose: 500 mg Albuterol Sulfate 2.5 mg/ (Albuterol/Ipratropium 3 ml) 0 mg INHALE RQ4H JACOB Enoxaparin Sodium (Enoxaparin Sodium 40 Mg/0.4 Ml Syringe) 40 mg SUBCUT Q24H JACOB Last Admin: 09/26/23 17:12 Dose: 40 mg Magnesium Sulfate (Magnesium Sulfate/H2o) 2 gm in 50 mls @ 25 mls/hr IV ONCE ONE Stop: 09/26/23 17:41 Last Admin: 09/26/23 16:09 Dose: 25 mls/hr Methylprednisolone Sodium Succinate (Methylprednisolone Sod Succ 125 Mg/2 Ml Vial) 60 mg IVPUSH Q6H JACOB Ondansetron HCl (Ondansetron Hcl 4 Mg/2 Ml Vial) 4 mg IVPUSH Q8H PRN PRN Reason: Nausea and Vomiting Sodium Chloride (0.9 % Sodium Chloride Flush 3 Ml Syringe) 3 ml IVFLUSH QSHIFT [facility] Physical Exam Vital Signs and Narrative: Vital Signs: Last Vital Signs Temp 97.6 F 09/26/23 11:29 Pulse 78 09/26/23 15:46 Resp 18 09/26/23 15:46 BP 134/95 H 09/26/23 11:29 Pulse Ox 95 09/26/23 11:29 O2 Del Method Room Air 09/26/23 11:29 BMI result Body Mass Index 24.0 Results Labs 09/26/23 14:38 09/26/23 14:38 Labs: Laboratory Results - last 24 hr 09/26/23 09/26/23 11:39 14:38 MCV 92.8 MCH 30.9 MCHC 33.3 RDW 11.9 Plt Count 320 MPV 8.9 L Immature Gran % (Auto) 0.1 Neut % (Auto) 42.6 L Lymph % (Auto) 39.9 [place] % (Auto) 7.3 Eos % (Auto) 9.1 H Baso % (Auto) 1.0 Lymph # (Auto) 2.9 [place] # (Auto) 0.5 Eos # (Auto) 0.7 H Baso # (Auto) 0.1 Abs Immat Gran (auto) 0.01 Absolute Neuts (auto) 3.1 Absolute Nucleated RBC 0.000 Nucleated RBC % (auto) 0.0 Anion Gap 11 L Estim Creat Clear Calc 89.3 Estimated GFR > 60 Random Glucose 63 Calcium 10.2 D COVID-19 ([facility]) Negative COVID-19 Clin Com See Note Influenza Type A (ISAAC) Negative Influenza Type B (ISAAC) Negative Influenza A & B Note See Note Imaging Radiologist's Impressions: Impressions Chest X-Ray 09/26/23 11:49 IMPRESSION: Unremarkable chest examination. Quality Stroke Does the patient have a stroke diagnosis?: No VTE Prior VTE?: No VTE Risk Level:: Medical - moderate - high VTE Device Contraindication: Treatment Not Indicated VTE Drug Contraindication: N/A - Med Ordered
--- NOTE | 2023-09-26 18:04 | PHA.MEDREC ---
Pharmacy Consult ? Medication Reconciliation Pharmacy has completed the medication reconciliation. Patient stated they are only on methadone
[2023-09-26 18:26] VITALS: BP 134/68; PULSE 102; RESP 22; TEMP 37; O2SAT 94
[2023-09-26 20:39] VITALS: BP 117/65; PULSE 104; RESP 18; TEMP 36.9; O2SAT 97
--- NOTE | 2023-09-26 20:44 | MHC.EDTECH ---
This pct assumed care of pt at 1900 ,vitals taken ,pt was offer fluids ,had kendal naomi and juice to drink .
[2023-09-26] MEDS: methylPREDNISolone Sod Succ 125 MG/2 ML VIAL 60 MG IVPUSH (21:40)
[2023-09-26] MEDS: 0.9 % Sodium Chloride Flush 3 ML SYRINGE IVFLUSH (21:41)
[2023-09-26 23:50] VITALS: BP 127/64; PULSE 100; RESP 16; TEMP 36.1; O2SAT 97
--- NOTE | 2023-09-27 02:09 | MHC.EDTECH ---
Patient rang asked for some ice water and something for headache ,RN aware .
[2023-09-27] MEDS: Acetaminophen 325 MG TABLET 650 MG PO ×2 (02:35→08:04)
[2023-09-27] MEDS: methylPREDNISolone Sod Succ 125 MG/2 ML VIAL 60 MG IVPUSH ×2 (02:36→08:12)
--- NOTE | 2023-09-27 04:08 | PC.NURSE ---
Patient c/o 9/10 headache pain. Tylenol 650 mg administered with good effect. Patient resting , call barakat within reach.
[2023-09-27 06:06] VITALS: BP 105/62; PULSE 83; RESP 14; TEMP 36.7; O2SAT 94
[2023-09-27] MEDS: 0.9 % Sodium Chloride Flush 3 ML SYRINGE IVFLUSH (08:12)
--- NOTE | 2023-09-27 08:46 | MHC.EDTECH ---
gave patient her breakfast. she asked for tylenol and was told the nurse was aware and getting meds at that time.
--- NOTE | 2023-09-27 11:11 | P.DS_ITS ---
DS: Providers Provider Date of Service: 09/27/23 Date of admission: 09/26/23 16:53 Date of discharge: 09/27/23 Primary care physician: Unknown Physician DS: Diagnosis Discharge Diagnosis (1) Asthma exacerbation: Status: Acute (2) Polysubstance abuse: Status: Acute DS: Summary Hospital Course Hospital Course: 38-year-old female with past medical history significant for asthma hepatitis-C and polysubstance abuse presents to the emergency room with worsening shortness of breath that has not responded to her inhaler. She states last night she ran out of her inhaler and her breathing became worse over time. Presented to the emergency room where she received a DuoNeb therapy and steroids and feels somewhat better. Hospital Course Patient admitted to general medical floor and received Q 4 DuoNebs while awake along with pulse dose Solu-Medrol. This a.m. she is able to lie flat in bed without shortness of breath and is asking for discharge. She will be discharged to complete a course of prednisone along with an albuterol inhaler and a Trelegy inhaler. She is encouraged to follow-up with PCP as scheduled in approximately 6 weeks and return to ER if symptoms reoccur. She is also consult strongly on tobacco cessation Time Attestation Discharge coordination time: Greater than 30 minutes Quality: Safe Use of Opioids Does Pt have an Active Cancer Diagnosis on the Problem List?: No Quality: Stroke Does the patient have a stroke diagnosis?: No Physical Exam Vital Signs: Vital Signs: Last Vital Signs Temp 98.0 F 09/27/23 06:06 Pulse 83 09/27/23 06:06 Resp 14 09/27/23 06:06 BP 105/62 09/27/23 06:06 Pulse Ox 94 09/27/23 06:06 O2 Del Method Room Air 09/27/23 06:06 BMI result Body Mass Index 24.0 Const: Other: No acute issues. Lying flat in bed speaking in full sentences Resp: Other: Good aeration to bases. Scant expiratory wheezes at bases. .. Overall improved Cardio: Other: No S4; positive S1-S2; no S3 murmurs rubs or gallops GI: Other: Soft nontender nondistended normoactive bowel sounds Neuro: Other: Cranial nerves 2-12 grossly intact as tested. Motor is 5/5 all extremities. Sensation is intact. Cognition appropriate. Gait steady Extrem: Other: No edema bilaterally DS: Data Data Completed and Pending Labs on day of discharge: Laboratory Results - last 24 hr 09/26/23 09/26/23 11:39 14:38 WBC 7.2 RBC 4.59 Hgb 14.2 Hct 42.6 MCV 92.8 MCH 30.9 MCHC 33.3 RDW 11.9 Plt Count 320 MPV 8.9 L Immature Gran % (Auto) 0.1 Neut % (Auto) 42.6 L Lymph % (Auto) 39.9 [place] % (Auto) 7.3 Eos % (Auto) 9.1 H Baso % (Auto) 1.0 Lymph # (Auto) 2.9 [place] # (Auto) 0.5 Eos # (Auto) 0.7 H Baso # (Auto) 0.1 Abs Immat Gran (auto) 0.01 Absolute Neuts (auto) 3.1 Absolute Nucleated RBC 0.000 Nucleated RBC % (auto) 0.0 Sodium 140 Potassium 4.8 Chloride 100 Carbon Dioxide 34 H Anion Gap 11 L BUN 9 Creatinine 0.73 Estim Creat Clear Calc 89.3 Estimated GFR > 60 Random Glucose 63 Calcium 10.2 D Troponin I High Sens < 2.7 COVID-19 ([facility]) Negative COVID-19 Clin Com See Note Influenza Type A (ISAAC) Negative Influenza Type B (ISAAC) Negative Influenza A & B Note See Note Discharge Plan Discharge Anticipated Discharge Date/Time: 09/27/23 11:07 Patient Disposition: Home, Self-Care Discharge Diagnosis: Asthma exacerbation Referrals: Physician,Unknown J [Primary Care Provider] - 1 Week Discharge Medications: New prednisone 10 mg tablet See Rx Instructions .Route .COMPLEX Qty: 45 0RF Rx Instructions: 10 mg orally; 5 tabs p.o. daily x3 days; 4 tabs p.o. daily x3 days; 3 tabs daily x3 days; 2 tabs daily x3 days; 1 tab daily x3 days albuterol sulfate 90 mcg/actuation HFA aerosol inhaler 1 inh inhalation QID PRN (Reason: shortness of breath or wheezing) Qty: 8.5 3RF Trelegy Ellipta 100-62.5-25 mcg blister with device 1 inh inhalation DAILY Qty: 28 3RF Discharge Orders: Discharge Order (Routine); Ordered 09/27/23 Ordered By: Marko Montez Diet: Advance to usual diet Activity on Discharge: As tolerated Stand Alone Forms: Patient Portal Discharge page Care Plan Goals: Complete course of prednisone taper as ordered. Albuterol inhaler 2 puffs 4 times a day as needed for wheezing Health Concerns: Add Trelegy 1 puff daily to regimen. Plan of Treatment: Arrange follow-up with PCP for ongoing treat Assessment: See discharge summary
[2023-09-27 11:18] VITALS: BP 111/73; PULSE 80; RESP 18; TEMP 36.6; O2SAT 96
--- NOTE | 2023-09-27 11:24 | PC.NURSE ---
aox4. calm, coop. no distress. PIV removed- site c/d/i. talking well. walked w steady gait to exit with fam member. no respiratory distress. breathign regularly. +CMS.
== END 2023-09-27 11:15 | disposition home or self-care (01) ==
LOC: HO.ED 15:43 → HO.EDOVER 16:58
PROVIDERS: Nurse Practitioner Family; Physician Assistant; Admitting Provider Hospitalist; Emergency Provider Emergency Medicine Emergency Medical Services; Visit Provider Hospitalist
DX: J45.21 Mild intermittent asthma with (acute) exacerbation (principal); F19.10 Other psychoactive substance abuse, uncomplicated; R05.9 Cough, unspecified; R06.02 Shortness of breath; R06.00 Dyspnea, unspecified; B19.20 Unspecified viral hepatitis C without hepatic coma; Z11.52 Encounter for screening for COVID-19
CPT/HCPCS: 36415; 71046; 80048; 84484; 85025; 87502; 87635; 93005; 94640; 96365; 96366; 96372; 96375; 96376; 99221; 99285; J1650; J2930; J3475

== ENCOUNTER → 2023-09-26 14:22 | Outpatient (BNV) | payer OTHER, SELFPAY | PROVIDERS: Emergency Provider Emergency Medicine Emergency Medical Services; Visit Provider Internal Medicine Cardiovascular Disease | DX: I45.10 Unspecified right bundle-branch block (principal); R94.31 Abnormal electrocardiogram [ECG] [EKG] | CPT/HCPCS: 93010 ==

== ENCOUNTER → 2023-09-26 16:53 | Outpatient (BNV) | payer OTHER, SELFPAY | PROVIDERS: Admitting Provider Hospitalist; Emergency Provider Emergency Medicine Emergency Medical Services; Visit Provider Hospitalist | DX: J45.21 Mild intermittent asthma with (acute) exacerbation (principal); F19.10 Other psychoactive substance abuse, uncomplicated | CPT/HCPCS: 99223; 99239 ==